=== PATIENT | male | born 1945 | race Caucasian/White ===

== ENCOUNTER → 2017-06-05 | Outpatient (CLI) | payer MEDICARE ==
--- NOTE | 2017-06-05 13:42 | US ---
EXAMINATION TYPE: US kidneys/renal and bladder DATE OF EXAM: 06/05/2017 COMPARISON: NONE CLINICAL HISTORY: R32 unspecified urinary incontinence. EXAM MEASUREMENTS: Right Kidney: 9.6 x 4.4 x 4.6 cm Left Kidney: 10.1 x 5.3 x 4.1 cm Post Void Residual Volume: 72 mL Right Kidney: No hydronephrosis or masses seen Left Kidney: No hydronephrosis or masses seen Bladder: wnl Bilateral Jets seen: Yes Normal Post Void Residual: No There is no evidence for hydronephrosis at this point in time. No nephrolithiasis is seen. No kevin s are identified. The urinary bladder is anechoic. Bilateral ureteral jets are seen. IMPRESSION: No acute process.
== END | disposition home or self-care (01) ==
LOC: RADUSWWP 12:50
PROVIDERS: ATTEND Family Medicine
DX: R32 Unspecified urinary incontinence (principal)
CPT/HCPCS: 76770

== ENCOUNTER 2018-09-26 18:57 | Emergency (ER) | payer MEDICARE ==
[2018-09-26 19:12] VITALS: RESP 18
[2018-09-26] MEDS ORDERED: cefTRIAXone 1,000 MG VIAL (IM USE) IM STA (19:20)
--- NOTE | 2018-09-26 19:21 | ED ---
Skin/Abscess/FB HPI - General Chief complaint: Skin/Abscess/Foreign Body Stated complaint: Hand swelling Time Seen by Provider: 09/26/18 19:13 Source: patient Mode of arrival: ambulatory Limitations: no limitations - History of Present Illness Initial comments: 73-year-old male presenting for possible infection of the left hand. Patient states that he hit his dorsum of the left hand a week prior. He states that he developed a small bump and he try to drain it with a needle. He states that there is a small amount of drainage but nothing impressive. She states that there is some surrounding redness seems concerns infected. Patient denies fever chills night sweats. Patient denies any limitations in range of motion of the digits or swelling of the fingers. Patient denies any pain with passive range of motion he states there is pain with palpation of the area. Remaining review systems negative patient denies history of diabetes. - Related Data Home Medications Medication Instructions Recorded Confirmed ALPRAZolam [Xanax] 0.5 mg PO HS 12/03/13 12/04/13 Allopurinol [Zyloprim] 300 mg PO DAILY 12/03/13 12/04/13 Aspirin 81 mg PO DAILY 12/03/13 12/04/13 Metoprolol Tartrate [Lopressor] 50 mg PO DAILY 12/03/13 12/04/13 Metoprolol Tartrate [Lopressor] 100 mg PO QAM 12/03/13 12/04/13 hydrALAZINE HCL [Apresoline] 50 mg PO BID 12/03/13 12/04/13 Previous Rx's Medication Instructions Recorded Cephalexin [Keflex] 500 mg PO Q6HR 7 Days #28 cap 09/26/18 Allergies Allergy/AdvReac Type Severity Reaction Status Date / Time iodine Allergy Severe face and Verified 09/26/18 19:11 throat swelling, red skin Review of Systems ROS Statement: Those systems with pertinent positive or pertinent negative responses have been documented in the HPI. ROS Other: All systems not noted in ROS Statement are negative. Past Medical History Past Medical History: GERD/Reflux, Hypertension Additional Past Medical History / Comment(s): hx bradycardia, hx ulcer, gout, arthritis History of Any Multi-Drug Resistant Organisms: None Reported Past Surgical History: Back Surgery, Heart Catheterization, Joint Replacement, Pacemaker Additional Past Surgical History / Comment(s): rt knee replacement x 2, neck surgery, retinal repair Past Anesthesia/Blood Transfusion Reactions: Previous Problems w/ Anesthesia Additional Past Anesthesia/Blood Transfusion Reaction / Comment(s): BP "crashed and kidney failure" after one knee surgery Type of Cardiac Device: Permanent Pacemaker Device Placement Date:: 7-8 yrs ago Past Psychological History: Depression Smoking Status: Never smoker Past Alcohol Use History: Daily Past Drug Use History: None Reported - Past Family History Mother Family Medical History: Cancer General Exam - General Exam Comments Initial Comments: General: The patient is awake and alert, in no distress, and does not appear acutely ill. Eye: Pupils are equal, round and reactive to light, extra-ocular movements are intact. No nystagmus. There is normal conjunctiva bilaterally. No signs of icterus. Cardiovascular: There is a regular rate and rhythm. No murmur, rub or gallop is appreciated. Respiratory: Lungs are clear to auscultation, respirations are non-labored, breath sounds are equal. No wheezes, stridor, rales, or rhonchi. Musculoskeletal: Normal ROM, no tenderness. Strength 5/5. Sensation intact. Pulses equal bilaterally 2+. Neurological: A&O x 3. CN II-XII intact, There are no obvious motor or sensory deficits. Coordination appears grossly intact. Speech is normal. Skin: Skin is warm and dry and no rashes. An abrasion of the 4th MCP joint, surrounding redness. no abscess noted. no drainge. no fusiform swelling of digits full ROM at MCP, DIP AND PIP joint of all 5 digits of affected hand. no pain with passive movement Psychiatric: Cooperative, appropriate mood & affect, normal judgment. Limitations: no limitations Course Vital Signs 09/26/18 09/26/18 19:09 20:35 Temperature 99.2 F 98.8 F Pulse Rate 70 82 Respiratory 18 18 Rate Blood Pressure 134/81 143/78 O2 Sat by Pulse 97 98 Oximetry Medical Decision Making - Medical Decision Making 73-year-old male presenting for possible infection. Upon examination there is an abrasion with surrounding redness concerning for developing infection. Patient x-ray to ensure no develop of osteomyelitis. There is no fluctuant abscess. Patient is given 1 dose of ceftriaxone. No Knavel signs. Patient show no signs of systemic infection. No history of DM. I discussed the case bedtime provider Dr. Yates feel patient is stable for discharge with oral antibiotics and outpatient primary care follow-up. Return parameters were discussed at length patient verbalizes understanding the patient is discharged appearing well Disposition Clinical Impression: Cellulitis Disposition: HOME SELF-CARE Condition: Good Instructions (If sedation given, give patient instructions): Cellulitis (ED) Additional Instructions: Please use medication as discussed. Please follow-up with family doctor in the next 2 days. Please return to emergency room if the symptoms increase or worsen or for any other concerns. Prescriptions: Cephalexin [Keflex] 500 mg PO Q6HR 7 Days #28 cap Is patient prescribed a controlled substance at d/c from ED?: No Referrals: Flaquita Hancock MD [Primary Care Provider] - 1-2 days Time of Disposition: 19:56
--- NOTE | 2018-09-26 19:44 | XR ---
EXAMINATION TYPE: XR hand complete LT DATE OF EXAM: 09/26/2018 COMPARISON: NONE HISTORY: Left hand wound. Infection. TECHNIQUE: 3 views FINDINGS: There is moderate narrowing of the first carpometacarpal joint space with sclerosis and spu r formation. There is calcification of the triangular cartilage. Metacarpals are intact. There is sof t tissue swelling on the dorsum of the MP joints. I see no fracture. Carpal bones are intact. There i s mild spurring at the DIP joints. There is some narrowing and spurring at the second MP joint. IMPRESSION: Osteoarthritis. No fracture. No sign of osteomyelitis.
[2018-09-26 20:37] VITALS: BP 143/78; PULSE 82; TEMP 98.8
== END 2018-09-26 20:37 | disposition home or self-care (01) ==
LOC: EC 18:57
DX: L03.114 Cellulitis of left upper limb (principal); S60.512A Abrasion of left hand, initial encounter; I10 Essential (primary) hypertension; M10.9 Gout, unspecified; M19.90 Unspecified osteoarthritis, unspecified site; F32.9 Major depressive disorder, single episode, unspecified; Z95.818 Presence of other cardiac implants and grafts; Z96.651 Presence of right artificial knee joint; Z95.0 Presence of cardiac pacemaker; Z79.82 Long term (current) use of aspirin; Z79.899 Other long term (current) drug therapy; Z91.048 Other nonmedicinal substance allergy status; W22.8XXA Striking against or struck by other objects, initial encounter
CPT/HCPCS: 73130; 99283; 96372; J0696

== ENCOUNTER 2018-10-22 08:53 | Day surgery (SDC) | payer MEDICARE ==
[2018-10-21 09:32] VITALS: BMI 26.9
[~2018-10-22 08:53] MED LIST: LACTATED RINGERS 1,000 ML IV SCH; LIDOCAINE 1% 20 ML VIAL (10MG/ML) FOR IV START INTRADERMA PRN
[2018-10-22 09:26] VITALS: RESP 16; TEMP 97.8
[2018-10-22] MEDS ORDERED: LIDOCAINE 1% INJ 10MG/ML (20 ML MDV) ONE (09:43)
[2018-10-22] MEDS ORDERED: PROPOFOL 10 MG/ML 20 ML VIAL IV ONE (09:43)
--- NOTE | 2018-10-22 09:59 | P.PCN ---
Date of Procedure: 10/22/18 Procedure(s) Performed: BRIEF HISTORY: Patient is a 73-year-old pleasant white male scheduled for an elective colonoscopy as a part of evaluation of intermittent rectal bleeding for the last few weeks duration. PROCEDURE PERFORMED: Colonoscopy. PREOPERATIVE DIAGNOSIS: Intermittent rectal bleeding. IV sedation per Anesthesia. PROCEDURE: After informed consent was obtained, the patient, was brought into the endoscopy unit. IV sedation was administered by Anesthesia under continuous monitoring. Digital rectal examination was normal. Initially the Olympus CF-160 flexible video colonoscope was then inserted in the rectum, gradually advanced into the cecum without any difficulty. Careful examination was performed as the scope was gradually being withdrawn. Ileocecal valve and the appendiceal orifice were visualized and appeared normal. Prep was excellent. Mucosa of the cecum, ascending colon, transverse colon, descending colon, sigmoid colon, and rectum appeared normal. Scattered sigmoid diverticulosis seen. Retroflexion was performed in the rectum and all internal hemorrhoids were seen. The patient tolerated the procedure well. IMPRESSION: Small internal hemorrhoids Scattered sigmoid diverticulosis No evidence of colorectal neoplasia RECOMMENDATIONS: Findings of this examination were discussed with the patient as his family. He will continue with a high-fiber diet and avoid constipation. He was advised to have a repeat screening colonoscopy in 10 years.
[2018-10-22 10:25] VITALS: BP 117/71; PULSE 61
== END 2018-10-22 10:50 | disposition home or self-care (01) ==
LOC: ORWHC2ENDO 08:53
PROVIDERS: ATTEND Internal Medicine Gastroenterology
DX: K57.30 Diverticulosis of large intestine without perforation or abscess without bleeding (principal); K64.8 Other hemorrhoids; K21.9 Gastro-esophageal reflux disease without esophagitis; I10 Essential (primary) hypertension; M10.9 Gout, unspecified; Z79.82 Long term (current) use of aspirin; Z79.899 Other long term (current) drug therapy; Z91.048 Other nonmedicinal substance allergy status
CPT/HCPCS: 45378; J2001; J2704

== ENCOUNTER → 2018-10-31 | Outpatient (CLI) | payer MEDICARE ==
--- NOTE | 2018-11-01 11:29 | CT ---
EXAMINATION TYPE: CT ChestAbdPelvis wo con DATE OF EXAM: 10/31/2018 COMPARISON: HISTORY: abnormal weight loss, fatigue CT DLP: 735.7mGycm Unenhanced CT of the Chest, Abdomen and Pelvis Unenhanced CT of the chest ,abdomen and pelvis is performed. The lack of intravenous contrast limits evaluation of the solid and hollow viscera. Oral contrast: Yes CT Chest: LUNGS: Hyperinflation compatible with COPD. The lungs are clear and free of infiltrate or atelectasis . No pulmonary nodule or mass is detected. No pleural effusion or CT evidence of interstitial lung disease. MEDIASTINUM: Thoracic aorta is of normal caliber. The heart is not enlarged. No evidence for media stinal mass or adenopathy. HILAR STRUCTURES: No evidence for mass. No hilar adenopathy is appreciated. OTHER: No significant abnormality. CONTRAST CT ABDOMEN AND PELVIS: LIVER/GB: No calcified gallstones. No space occupying hepatic lesion. Biliary tree is of normal ca liber. PANCREAS: No inflammation. No distinct mass. SPLEEN: Splenomegaly measuring 16.4 cm. ADRENALS: No nodule. No thickening. KIDNEYS/BLADDER: No hydronephrosis. No nephrolithiasis. No disctinct renal mass. BOWEL: Normal appendix. Normal bowel caliber. No inflammation. Moderate diverticulosis without dive rticulitis. GENITAL ORGANS: State gland enlargement with Central glandular calcification. LYMPH NODES: No greater than 1cm abdominal or pelvic lymph nodes are appreciated. AORTA: No significant abnormality. OSSEOUS STRUCTURES: Postoperative changes lumbar spine. Severe scattered degenerative disc disease. OTHER: No significant additional abnormality is seen. IMPRESSION: 1. No significant abnormality appreciated to account for the patient's symptoms. 2. Sigmoid diverticulosis without diverticulitis. 3. Splenomegaly of uncertain etiology. Multiple small subcentimeter mesenteric lymph nodes.
== END | disposition home or self-care (01) ==
LOC: RADCTMAIN 11:58
PROVIDERS: ATTEND Internal Medicine Rheumatology
DX: R16.1 Splenomegaly, not elsewhere classified (principal); K57.30 Diverticulosis of large intestine without perforation or abscess without bleeding; R22.2 Localized swelling, mass and lump, trunk; R63.4 Abnormal weight loss
CPT/HCPCS: 71250; 74176

== ENCOUNTER → 2020-10-04 | Outpatient (CLI) | payer MEDICARE ==
--- NOTE | 2020-10-04 10:56 | XR ---
EXAMINATION TYPE: XR Hip Complete LT DATE OF EXAM: 10/04/2020 COMPARISON: NONE HISTORY: Pain TECHNIQUE: 2 views submitted FINDINGS: A moderate superior narrowing of the joint space with hypertrophic spurring. Acetabular hypertrophy. No acute fracture or dislocation. Vascular calcifications noted. IMPRESSION: 1. Arthropathy correlate for femoral acetabular impingement.
--- NOTE | 2020-10-04 10:57 | XR ---
EXAM TYPE: LUMBAR SPINE X RAY SERIES COMPARISON: NONE HISTORY: Pain TECHNIQUE: 4 views are submitted. FINDINGS: Alignment is anatomic. The pedicles are intact. The transverse processes are intact. There is post surgical change L5-S1 with mild anterolisthesis. Facet arthropathy at all levels with mild to moderat e multilevel degenerative disc disease and diffuse osteopenia. Vascular calcifications noted. IMPRESSION: 1. Multilevel mild to moderate degenerative disc disease. 2. Postsurgical change at L5-S1 with grade 1 anterolisthesis. Suspect multilevel foraminal encroachme nt.
== END | disposition home or self-care (01) ==
LOC: RADXRMAIN 10:24
PROVIDERS: ATTEND Family Medicine
DX: M12.852 Other specific arthropathies, not elsewhere classified, left hip (principal); M51.36 Other intervertebral disc degeneration, lumbar region
CPT/HCPCS: 72110; 73502

== ENCOUNTER 2021-08-18 14:16 | Inpatient (IN) | payer MEDICARE ==
[2021-08-18 14:36] LABS: Glucose,Whole Blood 108 mg/dL (70-110)
[2021-08-18] MEDS ORDERED: SODIUM CHLORIDE 0.9% 500 ML 500 ML IV STA (14:43)
--- NOTE | 2021-08-18 15:08 | ED ---
General Adult HPI - General Chief complaint: Neuro Symptoms/Deficit Stated complaint: Memory Loss/Weakness/Sent by PCP Time Seen by Provider: 08/18/21 14:40 Source: patient, RN notes reviewed, old records reviewed Mode of arrival: ambulatory Limitations: no limitations - History of Present Illness Initial comments: This is a 76-year-old male who presents emergency Department complaining that he lost memory for the last 2 hours. states he was acting normal and all of a sudden he had forgotten what transpired over the last 2 hours. Patient states she can remember this morning everything that happened then. states he had no slurred speech he had no facial droop. No weakness or numbness that he was complaining of. Patient currently cannot remember those 2 hours but he is aware of the fact that he had forgotten it for. Of time. Symptoms started at 1:15 they resolved just after he arrived in the emergency department. Patient denies any recent fever chills or cough. Patient denies any injury or trauma. Patient denies any chest pain difficulty breathing shortness of breath. Patient denies any abdominal pain patient's nausea vomiting diarrhea. - Related Data Home Medications Medication Instructions Recorded Confirmed ALPRAZolam [Xanax] 0.5 mg PO HS 12/03/13 10/21/18 Aspirin 81 mg PO DAILY 12/03/13 10/21/18 Metoprolol Tartrate [Lopressor] 150 mg PO BID 12/03/13 10/21/18 allopurinoL [Zyloprim] 300 mg PO DAILY 12/03/13 10/21/18 hydrALAZINE HCL [Apresoline] 50 mg PO BID 12/03/13 10/21/18 Famotidine [Pepcid] 20 mg PO DAILY 10/21/18 10/22/18 Tamsulosin HCl [Flomax] 0.4 mg PO DAILY 10/21/18 10/22/18 Allergies Allergy/AdvReac Type Severity Reaction Status Date / Time iodine Allergy Severe face and Verified 08/18/21 14:20 throat swelling, red skin Review of Systems ROS Statement: Those systems with pertinent positive or pertinent negative responses have been documented in the HPI. ROS Other: All systems not noted in ROS Statement are negative. Past Medical History Past Medical History: GERD/Reflux, Hypertension, Prostate Disorder Additional Past Medical History / Comment(s): hx bradycardia, hx ulcer, gout, arthritis History of Any Multi-Drug Resistant Organisms: None Reported Past Surgical History: Back Surgery, Heart Catheterization, Joint Replacement, Pacemaker Additional Past Surgical History / Comment(s): rt knee replacement x 2, neck surgery, retinal repair Past Anesthesia/Blood Transfusion Reactions: Previous Problems w/ Anesthesia Additional Past Anesthesia/Blood Transfusion Reaction / Comment(s): BP "crashed and kidney failure" after one knee surgery Type of Cardiac Device: Permanent Pacemaker Device Placement Date:: 7-8 yrs ago Past Psychological History: Depression Past Alcohol Use History: Daily Past Drug Use History: None Reported - Past Family History Mother Family Medical History: Cancer General Exam - General Exam Comments Initial Comments: GENERAL: Patient is well-developed and well-nourished. Patient is nontoxic and well- hydrated and is in no acute distress. ENT: Neck is soft and supple. No significant lymphadenopathy is noted. Oropharynx is clear. Moist mucous membranes. Neck has full range of motion without eliciting any pain. EYES: The sclera were anicteric and conjunctiva were pink and moist. Extraocular movements were intact and pupils were equal round and reactive to light. Eyelids were unremarkable. PULMONARY: Unlabored respirations. Good breath sounds bilaterally. No audible rales rhonchi or wheezing was noted. CARDIOVASCULAR: There is a regular rate and rhythm without any murmurs gallops or rubs. ABDOMEN: Soft and nontender with normal bowel sounds. SKIN: Skin is clear with no lesions or rashes and otherwise unremarkable. NEUROLOGIC: Patient is alert and oriented x3. Cranial nerves II through XII are grossly intact. Motor and sensory are also intact. Normal speech, volume and content. Symmetrical smile. Patient's NIH is 0 MUSCULOSKELETAL: Normal extremities with adequate strength and full range of motion. No lower extremity swelling or edema. No calf tenderness. LYMPHATICS: No significant lymphadenopathy is noted PSYCHIATRIC: Normal psychiatric evaluation. Limitations: no limitations Course Vital Signs 08/18/21 08/18/21 14:20 15:30 Temperature 97.8 F Pulse Rate 70 61 Respiratory 16 16 Rate Blood Pressure 165/96 163/102 O2 Sat by Pulse 99 97 Oximetry Medical Decision Making - Medical Decision Making EKG shows a paced rhythm at 71 bpm CA interval is 338 QRS is 104 QT interval is 411 QTC is 434. Patient's EKG shows no ST segment elevation or depression. CT shows some hyperdense areas that could be acute versus subacute infarct. No obvious bleed was noted. Chest x-ray shows no acute abnormality. I spoke with Dr. Stratton and he agreed to admit the patient admitted the patient wrote admitting orders I consulted neurology - Lab Data Result diagrams: 08/18/21 14:54 08/18/21 14:54 Lab Results 08/18/21 08/18/21 08/18/21 Range/Units 14:35 14:54 14:54 WBC 6.1 (3.8-10.6) k/uL RBC 5.07 (4.30-5.90) m/uL Hgb 15.5 (13.0-17.5) gm/dL Hct 45.3 (39.0-53.0) % MCV 89.5 (80.0-100.0) fL MCH 30.5 (25.0-35.0) pg MCHC 34.1 (31.0-37.0) g/dL RDW 13.0 (11.5-15.5) % Plt Count 146 L (150-450) k/uL MPV 7.3 Neutrophils % 76 % Lymphocytes % 11 % Monocytes % 9 % Eosinophils % 3 % Basophils % 1 % Neutrophils # 4.6 (1.3-7.7) k/uL Lymphocytes # 0.7 L (1.0-4.8) k/uL Monocytes # 0.5 (0-1.0) k/uL Eosinophils # 0.2 (0-0.7) k/uL Basophils # 0.0 (0-0.2) k/uL PT 10.8 (9.0-12.0) sec INR 1.0 (<1.2) APTT 24.3 (22.0-30.0) sec Sodium (137-145) mmol/L Potassium (3.5-5.1) mmol/L Chloride (98-107) mmol/L Carbon Dioxide (22-30) mmol/L Anion Gap mmol/L BUN (9-20) mg/dL Creatinine (0.66-1.25) mg/dL Est GFR (CKD-EPI)AfAm (>60 ml/min/1.73 sqM) Est GFR (CKD-EPI)NonAf (>60 ml/min/1.73 sqM) Glucose (74-99) mg/dL POC Glucose (mg/dL) 108 (70-110) mg/dL POC Glu Media Relations Manager ID Kathie Haji Calcium (8.4-10.2) mg/dL Total Bilirubin (0.2-1.3) mg/dL AST (17-59) U/L ALT (4-49) U/L Alkaline Phosphatase (38-126) U/L Troponin I (0.000-0.034) ng/mL Total Protein (6.3-8.2) g/dL Albumin (3.5-5.0) g/dL 08/18/21 08/18/21 Range/Units 14:54 14:54 WBC (3.8-10.6) k/uL RBC (4.30-5.90) m/uL Hgb (13.0-17.5) gm/dL Hct (39.0-53.0) % MCV (80.0-100.0) fL MCH (25.0-35.0) pg MCHC (31.0-37.0) g/dL RDW (11.5-15.5) % Plt Count (150-450) k/uL MPV Neutrophils % % Lymphocytes % % Monocytes % % Eosinophils % % Basophils % % Neutrophils # (1.3-7.7) k/uL Lymphocytes # (1.0-4.8) k/uL Monocytes # (0-1.0) k/uL Eosinophils # (0-0.7) k/uL Basophils # (0-0.2) k/uL PT (9.0-12.0) sec INR (<1.2) APTT (22.0-30.0) sec Sodium 137 (137-145) mmol/L Potassium 4.3 (3.5-5.1) mmol/L Chloride 107 (98-107) mmol/L Carbon Dioxide 23 (22-30) mmol/L Anion Gap 7 mmol/L BUN 23 H (9-20) mg/dL Creatinine 1.13 (0.66-1.25) mg/dL Est GFR (CKD-EPI)AfAm 73 (>60 ml/min/1.73 sqM) Est GFR (CKD-EPI)NonAf 63 (>60 ml/min/1.73 sqM) Glucose 107 H (74-99) mg/dL POC Glucose (mg/dL) (70-110) mg/dL POC Glu Media Relations Manager ID Calcium 9.0 (8.4-10.2) mg/dL Total Bilirubin 1.3 (0.2-1.3) mg/dL AST 29 (17-59) U/L ALT 20 (4-49) U/L Alkaline Phosphatase 74 (38-126) U/L Troponin I <0.012 (0.000-0.034) ng/mL Total Protein 7.0 (6.3-8.2) g/dL Albumin 4.3 (3.5-5.0) g/dL Disposition Clinical Impression: Transient cerebral ischemia Disposition: ADMITTED IP TO THIS HOSP Referrals: Flaquita Hancock MD [Primary Care Provider] - 1-2 days Time of Disposition: 15:51
--- NOTE | 2021-08-18 15:12 | CT ---
EXAMINATION TYPE: CT brain wo con DATE OF EXAM: 08/18/2021 COMPARISON: 04/16/2012 HISTORY: memory loss, possible CVA CT DLP: 1123.4 mGycm Automated exposure control for dose reduction was used. FINDINGS: The ventricles, basal cisterns and sulci over convexities are within normal limits and there is no ma ss effect or shift of the midline structures. There are 2 small focal areas of decreased density one in the deep periventricular white matter adjac ent to the frontal horn of the left lateral ventricle and the other in the region of the left caudate nucleus. These are not seen on the prior study and could represent small acute to subacute infarct. There is no acute bleed or mass effect. There is no shift of midline structures Posterior fossa is grossly normal. Intraorbital contents appear normal and symmetric. Visualized paranasal sinuses and mastoid air cells are well aerated. The calvarium is intact. IMPRESSION: 1. NO ACUTE BLEED OR MASS EFFECT. 2. COMPARED TO THE PREVIOUS STUDY FROM 04/16/2012, THERE IS BEEN INTERVAL DEVELOPMENT OF SMALL HYPODENS ITIES IN THE DEEP PERIVENTRICULAR WHITE MATTER ADJACENT TO THE ANTERIOR HORN OF THE LEFT FRONTAL LOBE AND IN THE LEFT CAUDATE NUCLEUS. THESE COULD REPRESENT ACUTE OR SUBACUTE SMALL LACUNAR INFARCTS AND MR WITH DIFFUSION IS RECOMMENDED FOR FURTHER EVALUATION.
[2021-08-18 15:17] LABS: Basophils % (A) 1 %; Eosinophils # (A) 0.2 k/uL (0-0.7); Eosinophils % (A) 3 %; HCT 45.3 % (39.0-53.0); HGB 15.5 gm/dL (13.0-17.5); Lymphocytes # (A) 0.7 k/uL (1.0-4.8); Lymphocytes % (A) 11 %; MCH 30.5 pg (25.0-35.0); MCHC 34.1 g/dL (31.0-37.0); MCV 89.5 fL (80.0-100.0); Mean Platelet Volume 7.3; Monocytes # (A) 0.5 k/uL (0-1.0); Monocytes % (A) 9 %; Neutrophils # (A) 4.6 k/uL (1.3-7.7); Neutrophils % (A) 76 %; Platelet Count 146 k/uL (150-450); RBC 5.07 m/uL (4.30-5.90); WBC 6.1 k/uL (3.8-10.6)
[2021-08-18 15:26] LABS: Albumin 4.3 g/dL (3.5-5.0); Potassium 4.3 mmol/L (3.5-5.1); Total Bilirubin 1.3 mg/dL (0.2-1.3)
--- NOTE | 2021-08-18 15:30 | XR ---
EXAMINATION TYPE: XR chest 2V DATE OF EXAM: 08/18/2021 COMPARISON: CT October 31, 2018 HISTORY: Altered mental status and weakness. TECHNIQUE: Frontal and lateral views of the chest are obtained. FINDINGS: There is no suspicious new focal air space opacity, pleural effusion, or pneumothorax seen . Persistent cardiomegaly with multi lead pacemaker and ectatic thoracic aorta. Slight underlying sco liotic curvature is redemonstrated. IMPRESSION: Cardiomegaly without acute pulmonary process.
[2021-08-18 15:35] LABS: Partial Thromboplastin Time 24.3 sec (22.0-30.0); Prothrombin Time 10.8 sec (9.0-12.0)
[2021-08-18] MEDS ORDERED: ASPIRIN 325 MG TAB PO STA (15:51)
--- NOTE | 2021-08-18 20:29 | US ---
EXAMINATION TYPE: US carotid duplex BILAT DATE OF EXAM: 08/18/2021 COMPARISON: NONE CLINICAL HISTORY: TIA. memory loss EXAM MEASUREMENTS: RIGHT: Peak Systolic Velocity (PSV) cm/sec ----- Right CCA: 65.3 ----- Right ICA: 69.9 ----- Right ECA: 97.6 ICA/CCA ratio: 1.0 RIGHT: End Diastole cm/sec ----- Right CCA: 16.4 ----- Right ICA: 21.1 ----- Right ECA: 14.4 LEFT: Peak Systolic Velocity (PSV) cm/sec ----- Left CCA: 80.3 ----- Left ICA: 82.2 ----- Left ECA: 103 ICA/CCA ratio: 1.0 LEFT: End Diastole cm/sec ----- Left CCA: 19.7 ----- Left ICA: 16.1 ----- Left ECA: 10.6 VERTEBRALS (direction of flow): Right Vertebral: Antegrade Left Vertebral: Antegrade Rhythm: Normal Mild heterogeneous plaque bilaterally with no significant stenosis IMPRESSION: There is antegrade flow in the vertebral arteries. Images and measurements suggest less than 20% sten osis in both internal carotid arteries. Criteria for Assigning % of Stenosis / Diameter reduction (Estimation based on the indirect measurements of the internal carotid artery velocities (ICA PSV). 1. Normal (no stenosis)=ICA PSV < 125 cm/s: ratio < 2.0: ICA EDV<40 cm/s. 2. Less than 50% stenosis=ICA PSV < 125 cm/s: ratio < 2.0: ICA EDV<40 cm/s. 3. 50 to 69% stenosis=ICA PSV of 125 to 230 cm/s: ration 2.0 ? 4.0: ICA EDV 40-100 cm/s. 4. Greater than 70% stenosis to near occlusion= ICA PSV > 230 cm/s: ratio > 4.0: ICA EDV > 100 cm/s. 5. Near occlusion= ICA PSV velocities may be low or undetectable: variable ratio and ICA EDV. 6. Total occlusion=unable to detect flow.
[2021-08-19] MEDS ORDERED: ASPIRIN 325 MG TAB PO SCH (09:00)
--- NOTE | 2021-08-19 09:12 | CA ---
Transthoracic Echo Report Name: Rigoberto Jansen Age: 76 Gender: M : 1945 Exam Date: 08/19/2021 07:32 Exam Location: [facility] Ht (in): 71 Wt (lb): 200 Ordering Physician: Wallace Stratton MD Attending/Referring Phys: Operator Weapon Locating Radar Yvette Wallace RDCS Procedure CPT: Indications: tia Cardiac Hx: Pacemaker Technical Quality: Good Contrast 1: Total Dose (mL): Contrast 2: Total Dose (mL): MEASUREMENTS (Male / Female) Normal Values 2D ECHO LV Diastolic Diameter PLAX 3.8 cm 4.2 - 5.9 / 3.9 - 5.3 cm LV Systolic Diameter PLAX 1.4 cm IVS Diastolic Thickness 1.1 cm 0.6 - 1.0 / 0.6 - 0.9 cm LVPW Diastolic Thickness 1.4 cm 0.6 - 1.0 / 0.6 - 0.9 cm LV Relative Wall Thickness 0.7 M-MODE Aortic Root Diameter MM 4.2 cm LA Systolic Diameter MM 3.9 cm LA Ao Ratio MM 0.9 MV E Point Septal Separation 0.6 cm AV Cusp Separation MM 2.3 cm DOPPLER AV Peak Velocity 120.7 cm/s AV Peak Gradient 5.8 mmHg MV Area PHT 4.8 cm??? MR Peak Velocity 201.5 cm/s MR Peak Gradient 16.2 mmHg Mitral E Point Velocity 86.0 cm/s Mitral A Point Velocity 106.9 cm/s Mitral E to A Ratio 0.8 MV Deceleration Time 157.9 ms MV E' Velocity 6.3 cm/s Mitral E to MV E' Ratio 13.7 TR Peak Velocity 152.2 cm/s TR Peak Gradient 9.3 mmHg Right Ventricular Systolic Press 13.5 mmHg FINDINGS Left Ventricle Mildly increased septal wall thickness. Left ventricular ejection fraction is estimated at 55-60 %. Left ventricular cavity size normal. Right Ventricle The right ventricle is normal in size and function. Right Atrium The right atrium is normal in size. Left Atrium The left atrium is normal in size. Mitral Valve Structurally normal mitral valve without significant stenosis or prolapse. There is trace mitral regurgitation. Aortic Valve Structurally normal aortic valve without significant sclerosis or stenosis. There is no aortic regurgitation. Tricuspid Valve Structurally normal tricuspid valve without significant stenosis. Pulmonary artery systolic pressure is normal. Trace tricuspid regurgitation. Pulmonic Valve Structurally normal pulmonic valve without significant stenosis. There is no pulmonic regurgitation. Pericardium Normal pericardium without effusion. Aorta Mild aortic dilatation at the level of the sinuses of valsalva (root) measuring 4.2 cm. CONCLUSIONS Normal left ventricular ejection fraction 55-60% Trace mitral regurgitation Trace tricuspid regurgitation Mild aortic root dilation 4.2 cm Previewed by: Dr. Gregg Sepulveda DO (Electronically Signed) Final Date: 19 August 2021 09:11
--- NOTE | 2021-08-19 09:16 | P.CNNES ---
History of Present Illness Consult date: 08/19/21 Requesting physician: Reyes Flores Reason for Consult: TIA History of Present Illness: This is a 76-year-old gentleman with medical history of hypertension, bradycardia status post pacemaker,history of atrial fibrillation who presented to the emergency department because of amnesia. Patient stated that the he could not remember what transpired for 2 hours yesterday and it happened around 1ish pm. Prior to the episode he remembers he is dealing with this water hearing issue. He remembers coming to the hospital but he will he does not remember how he got to this floor and he does not remember that he had imaging. It seems his amnesia was more than 2 hours in total. According the ED note, his felt the patient did not have any slurred speech, facial droop, no focal weakness. Patient denies of any head trauma. Patient denies of any headache. He denies of any similar episodes like this in the past. He denies of any known stroke that he knows of. He denies any history of seizures. Patient is on home medication of aspirin 81 mg daily. Patient is not on any anticoagulation. These follow-up with cardiology team as an outpatient. Patient was tearful and he stated that he needs to go home and help his deal with this water issue. Some other workup in our facility consisted of: CT of the head is reported as no acute bleed or mass effect. Compared to the previous study from 2012 there is been interval development of small hypodensity in the deep periventricular white matter adjacent to the anterior horn of the left frontal lobe and the left caudate nucleus. These could represent acute or subacute small lacunar infarct and MRI diffusion is recommended for further evaluation. I personally reviewed that a CT of the head and I do not appreciate any acute ischemic stroke. These lacunar infarct that the reading radiologist reported and he's compared to 2013 it's hard to say th kyle are subacute or acute especially that that the last prior comparison was 2012 and I feel like these see more chronic but again we don't have any comparison since 2012. From my and there is no previous images in our facility for me to compare not even 2012. Carotid duplex is reported as there is antegrade flow in the vertebral arteries. Images and measurements suggest less than 20% stenosis in both internal carotid arteries. EKG is reported as electronic atrial pacemaker. Abnormal rhythm EKG. Review of Systems Review of system: The 12 point system was reviewed and apparent positive and negative per HPI. Past Medical History Past Medical History: GERD/Reflux, Hypertension, Prostate Disorder Additional Past Medical History / Comment(s): hx bradycardia, hx ulcer, gout, arthritis History of Any Multi-Drug Resistant Organisms: None Reported Past Surgical History: Back Surgery, Heart Catheterization, Joint Replacement, Pacemaker Additional Past Surgical History / Comment(s): rt knee replacement x 2, neck surgery, retinal repair Past Anesthesia/Blood Transfusion Reactions: Previous Problems w/ Anesthesia Additional Past Anesthesia/Blood Transfusion Reaction / Comment(s): BP "crashed and kidney failure" after one knee surgery Type of Cardiac Device: Permanent Pacemaker Device Placement Date:: 7-8 yrs ago Past Psychological History: Depression Smoking Status: Never smoker Past Alcohol Use History: Daily Past Drug Use History: None Reported - Past Family History Mother Family Medical History: Cancer Medications and Allergies Home Medications Medication Instructions Recorded Confirmed Type ALPRAZolam [Xanax] 0.5 mg PO HS 08/18/21 08/18/21 History Aspirin EC [Ecotrin Low Dose] 81 mg PO DAILY 08/18/21 08/18/21 History Doxazosin [Cardura] 4 mg PO DAILY 08/18/21 08/18/21 History Hydroxychloroquine Sulfate 200 mg PO DIRECTED 08/18/21 08/18/21 History [Plaquenil] Metoprolol Tartrate [Lopressor] 150 mg PO BID 08/18/21 08/18/21 History amLODIPine [Norvasc] 5 mg PO DAILY 08/18/21 08/18/21 History Allergies Allergy/AdvReac Type Severity Reaction Status Date / Time iodine Allergy Severe Anaphylaxis Verified 08/18/21 16:36 Physical Examination - Vital Signs Vital Signs: Vital Signs Temp Pulse Pulse Resp BP BP Pulse Ox 08/19/21 08:13 95 08/19/21 07:18 98.5 F 61 16 157/85 95 08/19/21 01:50 98.4 F 60 19 184/103 96 08/18/21 19:00 98.6 F 65 16 137/88 96 08/18/21 16:58 98.2 F 62 20 154/82 98 08/18/21 16:41 62 16 126/87 98 08/18/21 15:30 61 16 163/102 97 08/18/21 14:20 97.8 F 70 16 165/96 99 Intake and Output 08/18/21 08/19/21 08/19/21 22:59 06:59 14:59 Other: # Voids 1 2 Weight 90.718 kg GENERAL: The patient is lying in bed and is not in acute distress. CHEST: The heart rate is regular rate rhythm. No murmurs to auscultation. No carotid bruit bilaterally. LUNG: Clear to auscultation bilaterally no wheezing noted throughout. Not labored breathing. ABDOMEN/GI: Bowel sounds present in all 4 quadrants. No tenderness to palpation throughout. NEUROLOGICAL: Higher mental function: The patient is awake, alert, oriented to self, place and time. Patient is following simple commands. Subtle slight decrease response. No aphasia and no neglect. Cranial nerves: The pupils are round, equal and reactive to light and accommodation. Visual salazar are full to confrontation throughout. Extraocular movement is intact no nystagmus is noted. Facial sensation is normal to touch throughout. The facial strength is normal throughout. Hearing is normal bilaterally to hand rub. Tongue is midline and moved [id number] without any difficulty. No dysarthria is noted. Shoulder shrug is normal bilaterally. Motor: Gait is normal with normal arm swings. The strength is 5 over 5 throughout. Normal tone and bulk. Cerebellum: Normal finger to nose heel to gonzales bilaterally. Sensation: Sensation is normal to touch throughout. Reflexes (right/left): 2+ throughout. Except lowers are 1+ (had bilateral knee replacement) Plantars are mute bilaterally. Results - Laboratory Findings CBC and BMP: 08/18/21 14:54 08/18/21 14:54 Abnormal Lab Findings: Abnormal Labs 08/18/21 08/18/21 14:54 14:54 Plt Count 146 L Lymphocytes # 0.7 L BUN 23 H Glucose 107 H Assessment and Plan Assessment: Acute transient global amnesia (episode lasted more than 2 hours since it seems 2 hours prior to hospital and does not recall some of things while being here). Unknown cause. Lacunar infarct seen on a CAT scan and I think these are more chronic but it's hard to ascertain subacute since the last image for comparison was 2012. Lacunar infarcts are due to microvascular disease due to the patient risk factor (HTN, age) History of atrial fibrillation not on anticoagulation Hypertension Bradycardia status post pacemaker Plan: We cannot obtain MRI of the brain since patient has a pacemaker and recommended MRI the brain as an outpatient that his pacemaker compatible In the ED the patient was given aspirin 325mg once and his home medication was increased by the ED team from 81 mg to 325. I'll decrease it to 81 and in addition I'll add Plavix 75mg daily. Patient to be on dual antiplatelets for 21 days and after that he can be on only Plavix. I started the patient on Lipitor 20 mg daily at bedtime for secondary stroke prophylaxis I ordered TSH, hemoglobin A1c, vitamin B12, folate 2-D echo, lipid panel is ordered and is pending Recommend a routine EEG to rule out any seizure Will not be done until this Saturday since there is no division order technician available PT, OT and LAWNM[employer] MECH[employer]IC are consulted Cardiology team is consulted for history of atrial fibrillation We'll defer the rest of the medical management to primary team For DVT prophylaxis: started on subq heparin 5000U every 12 hours. Recommend the patient to follow-up with a neurologist as an outpatient within 1- 2 weeks Patient is refusing to stay here longer and wants to be discharged home. He was notified that we needed additional work-up prior to discharge. The plan is discussed with patient and his nurse. Thank you for the consultation. Carlos Dimas M.D. Neuro-hospitalist Time with Patient: Greater than 30
[2021-08-19 09:34] LABS: Chol/HDL Ratio 2.71 Ratio; LDL Cholesterol,Calculated 73.3 mg/dL (0.0-131.0); VLDL Calculation 18.84 mg/dL (5.00-40.00)
--- NOTE | 2021-08-19 10:44 | P.CRDCN ---
History of Present Illness History of present illness: HISTORY OF PRESENTING ILLNESS Patient is a pleasant 76-year-old male with history of hypertension, sick sinus syndrome status post prior pacemaker with prior lead revision, recently diagnose d lupus, TIA symptoms. He used to reduce the follow with Dr. Collier. He had an episode yesterday where he was confused and cannot recall where he was or what he was doing which is abnormal for him and therefore brought him to the emergency department. His symptoms improved by the time he got to emergency department. He has not had similar episodes in the past. Apparently overnight he had some similar episodes however may been some ing. He does have some issues with recall and question of some progression of mild dementia. He denies any chest pain or pressure, tightness. There is some report of atrial fibrillation however patient and both deny. CT brain showed no significant acute findings however some change of small vessel changes. EKG shows atrial paced rhythm with intrinsic ventricular sensing, normal axis, no significant ST or T wave abnormalities. On telemetry patient has been atrial paced without any significant atrial fibrillation or arrhythmias noted. He did have prior history of needing a lead revision. REVIEW OF SYSTEMS At the time of my exam: CONSTITUTIONAL: Denies fever or chills. CARDIOVASCULAR: Denies chest pain, shortness of breath, orthopnea, PND or palpitations. RESPIRATORY: Denies cough. GASTROINTESTINAL: Denies abdominal pain, diarrhea, constipation, nausea or vomiting. MUSCULOSKELETAL: Denies myalgias. NEUROLOGIC: Denies numbness, tingling or weakness. ENDOCRINE: Denies fatigue, weight change, polydipsia or polyurina. GENITOURINARY: Denies burning, hematuria or urgency with micturation. HEMATOLOGIC: Denies history of anemia or bleeding. PHYSICAL EXAMINATION Vital signs reviewed. CONSTITUTIONAL: No apparent distress. HEENT: Head is normocephalic. Pupils are equal, round. Sclerae anicteric. Mucous membranes of the mouth are moist. No JVD. No carotid bruit. CHEST EXAMINATION: Lungs are clear to auscultation. No chest wall tenderness is noted on palpation or with deep breathing. HEART EXAMINATION: Regular rate and rhythm. S1, S2 heard. No murmurs, gallops or rub. ABDOMEN: Soft, nontender. Positive bowel sounds. EXTREMITIES: 2+ peripheral pulses, no lower extremity edema and no calf tenderness. NEUROLOGIC EXAMINATION: Patient is awake, alert and oriented x3. ASSESSMENT 1. Altered mental status concerning for TIA. Recurrent symptoms may be related to sundowning on the hospital 2. Sick sinus syndrome status post permanent pacemaker 3. Hypertension 4. Hyperlipidemia 5. Documentation of atrial fibrillation however patient denies, currently atrial paced PLAN Echocardiogram reviewed with normal left ventricular function without significant valvular disease. Patient has been doing well from a cardiac standpoint. We'll interrogate pacemaker to determine if any significant atrial fibrillation burden. If patient does have significant A. fib burden would recommend anticoagulation however if pacemaker shows nothing, it does not appear he actually has atrial fibrillation. Cleared for discharge pending interrogation. Past Medical History Past Medical History: GERD/Reflux, Hypertension, Prostate Disorder Additional Past Medical History / Comment(s): hx bradycardia, hx ulcer, gout, arthritis History of Any Multi-Drug Resistant Organisms: None Reported Past Surgical History: Back Surgery, Heart Catheterization, Joint Replacement, Pacemaker Additional Past Surgical History / Comment(s): rt knee replacement x 2, neck surgery, retinal repair Past Anesthesia/Blood Transfusion Reactions: Previous Problems w/ Anesthesia Additional Past Anesthesia/Blood Transfusion Reaction / Comment(s): BP "crashed and kidney failure" after one knee surgery Type of Cardiac Device: Permanent Pacemaker Device Placement Date:: 7-8 yrs ago Past Psychological History: Depression Smoking Status: Never smoker Past Alcohol Use History: Daily Past Drug Use History: None Reported - Past Family History Mother Family Medical History: Cancer Medications and Allergies Home Medications Medication Instructions Recorded Confirmed Type ALPRAZolam [Xanax] 0.5 mg PO HS 08/18/21 08/18/21 History Aspirin EC [Ecotrin Low Dose] 81 mg PO DAILY 08/18/21 08/18/21 History Doxazosin [Cardura] 4 mg PO DAILY 08/18/21 08/18/21 History Hydroxychloroquine Sulfate 200 mg PO DIRECTED 08/18/21 08/18/21 History [Plaquenil] Metoprolol Tartrate [Lopressor] 150 mg PO BID 08/18/21 08/18/21 History amLODIPine [Norvasc] 5 mg PO DAILY 08/18/21 08/18/21 History Allergies Allergy/AdvReac Type Severity Reaction Status Date / Time iodine Allergy Severe Anaphylaxis Verified 08/18/21 16:36 Physical Exam Vitals: Vital Signs Temp Pulse Pulse Resp BP BP Pulse Ox 08/19/21 08:13 95 08/19/21 07:18 98.5 F 61 16 157/85 95 08/19/21 01:50 98.4 F 60 19 184/103 96 08/18/21 19:00 98.6 F 65 16 137/88 96 08/18/21 16:58 98.2 F 62 20 154/82 98 08/18/21 16:41 62 16 126/87 98 08/18/21 15:30 61 16 163/102 97 08/18/21 14:20 97.8 F 70 16 165/96 99 Intake and Output 08/18/21 08/19/21 08/19/21 22:59 06:59 14:59 Other: # Voids 1 2 Weight 90.718 kg Results 08/18/21 14:54 08/18/21 14:54 Cardiac Enzymes 08/18/21 08/18/21 Range/Units 14:54 14:54 AST 29 (17-59) U/L Troponin I <0.012 (0.000-0.034) ng/mL Coagulation 08/18/21 Range/Units 14:54 PT 10.8 (9.0-12.0) sec APTT 24.3 (22.0-30.0) sec Lipids 08/18/21 Range/Units 14:54 Triglycerides 94.20 (0.00-149.00) mg/dL Cholesterol 146.00 (0.00-200.00) mg/dL HDL Cholesterol 53.90 (40.00-60.00) mg/dL Cholesterol/HDL Ratio 2.71 Ratio CBC 08/18/21 Range/Units 14:54 WBC 6.1 (3.8-10.6) k/uL RBC 5.07 (4.30-5.90) m/uL Hgb 15.5 (13.0-17.5) gm/dL Hct 45.3 (39.0-53.0) % Plt Count 146 L (150-450) k/uL Comprehensive Metabolic Panel 08/18/21 Range/Units 14:54 Sodium 137 (137-145) mmol/L Potassium 4.3 (3.5-5.1) mmol/L Chloride 107 (98-107) mmol/L Carbon Dioxide 23 (22-30) mmol/L BUN 23 H (9-20) mg/dL Creatinine 1.13 (0.66-1.25) mg/dL Glucose 107 H (74-99) mg/dL Calcium 9.0 (8.4-10.2) mg/dL AST 29 (17-59) U/L ALT 20 (4-49) U/L Alkaline Phosphatase 74 (38-126) U/L Total Protein 7.0 (6.3-8.2) g/dL Albumin 4.3 (3.5-5.0) g/dL Current Medications Generic Name Dose Route Start Last Admin Trade Name Freq PRN Reason Stop Dose Admin Aspirin 81 mg 08/20/21 09:00 Aspirin 81 Mg PO DAILY [facility] Atorvastatin Calcium 20 mg 08/19/21 21:00 Atorvastatin 20 Mg Tab PO HS [facility] Clopidogrel Bisulfate 75 mg 08/19/21 09:15 Clopidogrel 75 Mg Tab PO DAILY [facility] Heparin Sodium (Porcine) 5,000 unit 08/19/21 21:00 Heparin Sodium,Porcine/Pf 5,000 Unit/0.5 Ml Syringe SQ Q12HR [facility] Intake and Output 08/18/21 08/19/21 08/19/21 22:59 06:59 14:59 Other: # Voids 1 2 Weight 90.718 kg 08/18/21 14:54 08/18/21 14:54
[2021-08-19] MEDS: CLOPIDOGREL 75 MG TAB PO SCH (11:13)
--- NOTE | 2021-08-19 12:22 | P.HPIM ---
History of Present Illness H&P Date: 08/18/21 Rigoberto Jansen, he is a 76-year-old male who presented to [facility] emergency room with a chief complaint of episode of loss of memory. Patient and his are in the room, his state that her went to the store and bought some items and came back, when he was at home he was not able to remember that he went to the store or bought anything, he was confused, he could not remember the location of the furness, he was brought in to emergency room and he gradually started to remember. He was evaluated in the emergency room vital examination on presentation revealed a temperature of 97.8 pulse 70 respirations 16 blood pressure 165/96 pulse ox 99% on room air Laboratory data revealed a white blood count of 6.1 hemoglobin 15.5 platelet count 146 sodium 137 potassium 4.3 chloride 107 CO2 23 BUN 23 creatinine 1.13 Testing in the emergency room revealed EKG done in the emergency room revealed electronic atrial pacemaker, computed tomography scan of the brain revealed no acute bleeding or mass effect, there is a small hypodensities in the deep periventricular white matter adjacent to the anterior horn of the left frontal lobe and the left caudate nucleus that could be acute or subacute small lacunar infarcts. Patient was admitted to medical floor for further evaluation and treatment, echocardiogram and carotid Doppler were ordered, neurology consultation re quested. On review of patient's chart there is a diagnosis of atrial fibrillation since 2013, patient denies any knowledge of having atrial fibrillation, cardiology consult will be requested to assess if there is any need for anticoagulation. Past Medical History Past Medical History: GERD/Reflux, Hypertension, Prostate Disorder Additional Past Medical History / Comment(s): hx bradycardia, hx ulcer, gout, arthritis History of Any Multi-Drug Resistant Organisms: None Reported Past Surgical History: Back Surgery, Heart Catheterization, Joint Replacement, Pacemaker Additional Past Surgical History / Comment(s): rt knee replacement x 2, neck surgery, retinal repair Past Anesthesia/Blood Transfusion Reactions: Previous Problems w/ Anesthesia Additional Past Anesthesia/Blood Transfusion Reaction / Comment(s): BP "crashed and kidney failure" after one knee surgery Type of Cardiac Device: Permanent Pacemaker Device Placement Date:: 7-8 yrs ago Past Psychological History: Depression Past Alcohol Use History: Daily Past Drug Use History: None Reported - Past Family History Mother Family Medical History: Cancer Medications and Allergies Home Medications Medication Instructions Recorded Confirmed Type ALPRAZolam [Xanax] 0.5 mg PO HS 08/18/21 08/18/21 History Aspirin EC [Ecotrin Low Dose] 81 mg PO DAILY 08/18/21 08/18/21 History Doxazosin [Cardura] 4 mg PO DAILY 08/18/21 08/18/21 History Hydroxychloroquine Sulfate 200 mg PO DIRECTED 08/18/21 08/18/21 History [Plaquenil] Metoprolol Tartrate [Lopressor] 150 mg PO BID 08/18/21 08/18/21 History amLODIPine [Norvasc] 5 mg PO DAILY 08/18/21 08/18/21 History Allergies Allergy/AdvReac Type Severity Reaction Status Date / Time iodine Allergy Severe Anaphylaxis Verified 08/18/21 16:36 Physical Exam Vitals: Vital Signs Temp Pulse Resp BP Pulse Ox 08/18/21 15:30 61 16 163/102 97 08/18/21 14:20 97.8 F 70 16 165/96 99 Intake and Output 08/18/21 08/18/21 08/18/21 06:59 14:59 22:59 Other: Weight 90.718 kg In general patient is alert and oriented x 3 in no distress HEENT head normocephalic and atraumatic Neck is supple no JVD no goiter no lymphadenopathy no carotid bruit Chest examination is clear to auscultation no crackles no wheezing Cardiac exam reveals regular heart sounds S1 and S2 no gallops no murmurs Abdomen is soft nontender no organomegaly with normal bowel sounds Extremity exam reveals no edema no cyanosis or clubbing Neurological examination reveals no gross focal deficits Results CBC & Chem 7: 08/18/21 14:54 08/18/21 14:54 Labs: Abnormal Lab Results - Last 24 Hours (Table) 08/18/21 08/18/21 Range/Units 14:54 14:54 Plt Count 146 L (150-450) k/uL Lymphocytes # 0.7 L (1.0-4.8) k/uL BUN 23 H (9-20) mg/dL Glucose 107 H (74-99) mg/dL Assessment and Plan Plan: Episode of loss of memory, lasting about 2 hours, likely representing a TIA, patient is admitted to telemetry floor, echocardiogram and carotid Doppler were ordered, neurology consultation and cardiology consultation were requested Underlying history of hypertension Underlying history of anxiety disorder maintained on Xanax Previous history of pacemaker placement Possible underlying history of atrial fibrillation cardiology consultation requested At this time patient is admitted to telemetry floor Awaiting cardiology and neurology input Echocardiogram and carotid Doppler ordered awaiting results Will follow closely
--- NOTE | 2021-08-19 12:24 | P.PN ---
Subjective Progress Note Date: 08/19/21 Rigoberto Jansen, he is a 76-year-old male who presented to [facility] emergency room with a chief complaint of episode of loss of memory. Patient and his are in the room, his state that her went to the store and bought some items and came back, when he was at home he was not able to remember that he went to the store or bought anything, he was confused, he could not remember the location of the furness, he was brought in to emergency room and he gradually started to remember. He was evaluated in the emergency room vital examination on presentation revealed a temperature of 97.8 pulse 70 respirations 16 blood pressure 165/96 pulse ox 99% on room air Laboratory data revealed a white blood count of 6.1 hemoglobin 15.5 platelet count 146 sodium 137 potassium 4.3 chloride 107 CO2 23 BUN 23 creatinine 1.13 Testing in the emergency room revealed EKG done in the emergency room revealed electronic atrial pacemaker, computed tomography scan of the brain revealed no acute bleeding or mass effect, there is a small hypodensities in the deep periventricular white matter adjacent to the anterior horn of the left frontal lobe and the left caudate nucleus that could be acute or subacute small lacunar infarcts. Patient was admitted to medical floor for further evaluation and treatment, echocardiogram and carotid Doppler were ordered, neurology consultation destiny myrick. On review of patient's chart there is a diagnosis of atrial fibrillation since 2013, patient denies any knowledge of having atrial fibrillation, cardiology consult will be requested to assess if there is any need for anticoagulation. On 08/19/2021 patient was seen and examined on the telemetry floor he is alert and oriented 3 in no apparent distress he denies any new episodes of loss of memory, there is no fever or chills no headache or dizziness no chest pain no shortness of breath no cough no nausea or vomiting no abdominal pain no diarrhea no blood in the stools no burning with urination no frequency or urgency and no hematuria, echocardiogram done, results reviewed, carotid Doppler done, no evidence of any significant stenosis, Plavix was added to medication regimen by neurology, cardiology ordering investigation of pacemaker to assess whether patient has atrial fibrillation, in that case he would need anticoagulation. Objective - Vital Signs Vital signs: Vital Signs Temp 98.5 F 08/19/21 07:18 Pulse 61 08/19/21 07:18 Resp 16 08/19/21 07:18 BP 157/85 08/19/21 07:18 Pulse Ox 95 08/19/21 08:13 FiO2 Intake & Output 08/18/21 08/19/21 08/19/21 18:59 06:59 18:59 Weight 90.718 kg Other: # Voids 2 - Exam In general patient is alert and oriented x 3 in no distress HEENT head normocephalic and atraumatic Neck is supple no JVD no goiter no lymphadenopathy no carotid bruit Chest examination is clear to auscultation no crackles no wheezing Cardiac exam reveals regular heart sounds S1 and S2 no gallops no murmurs Abdomen is soft nontender no organomegaly with normal bowel sounds Extremity exam reveals no edema no cyanosis or clubbing Neurological examination reveals no gross focal deficits - Labs CBC & Chem 7: 08/18/21 14:54 08/18/21 14:54 Labs: Abnormal Lab Results - Last 24 Hours (Table) 08/18/21 08/18/21 Range/Units 14:54 14:54 Plt Count 146 L (150-450) k/uL Lymphocytes # 0.7 L (1.0-4.8) k/uL BUN 23 H (9-20) mg/dL Glucose 107 H (74-99) mg/dL Assessment and Plan Plan: Episode of loss of memory, lasting about 2 hours, likely representing a TIA, patient is admitted to telemetry floor, echocardiogram and carotid Doppler were ordered, neurology consultation and cardiology consultation were requested Underlying history of hypertension Underlying history of anxiety disorder maintained on Xanax Previous history of pacemaker placement Possible underlying history of atrial fibrillation cardiology consultation requested At this time patient is admitted to telemetry floor Awaiting cardiology and neurology input Echocardiogram and carotid Doppler ordered awaiting results Will follow closely
[2021-08-19] MEDS: HEPARIN SODIUM,PORCINE/PF 5,000 UNIT/0.5 ML SYRINGE SQ SCH (21:17)
[2021-08-19] MEDS: ATORVASTATIN 20 MG TAB PO SCH (21:17)
[2021-08-20] MEDS ORDERED: QUEtiapine 25 MG TAB PO ONE (03:00)
[2021-08-20] MEDS: CLOPIDOGREL 75 MG TAB PO SCH (09:32)
[2021-08-20] MEDS: ASPIRIN 81 MG PO SCH (09:32)
[2021-08-20] MEDS: HEPARIN SODIUM,PORCINE/PF 5,000 UNIT/0.5 ML SYRINGE SQ SCH ×2 (09:32→21:37)
--- NOTE | 2021-08-20 10:58 | CT ---
EXAMINATION TYPE: CT brain wo con DATE OF EXAM: 08/20/2021 HISTORY: AMS CT DLP: 1029.9 mGycm. Automated Exposure Control for Dose Reduction was Utilized. TECHNIQUE: CT scan of the head is performed without contrast. COMPARISON: CT brain 2 days earlier. FINDINGS: There is no acute intracranial hemorrhage or midline shift identified. There is mild diff use ventricular and sulcal prominence consistent with diffuse age-related cerebral atrophy. There is mild to moderate low-attenuation in the periventricular white matter consistent with chronic small v essel ischemic change. The globes are intact and the visualized sinuses are clear. IMPRESSION: No acute intracranial hemorrhage or midline shift. There is mild diffuse age-related ce rebral atrophy and [id number] chronic small vessel ischemic change redemonstrated. No signific ant change from prior.
--- NOTE | 2021-08-20 12:56 | P.PN ---
Subjective Progress Note Date: 08/20/21 Rigoberto Jansen, he is a 76-year-old male who presented to [facility] emergency room with a chief complaint of episode of loss of memory. Patient and his are in the room, his state that her went to the store and bought some items and came back, when he was at home he was not able to remember that he went to the store or bought anything, he was confused, he could not remember the location of the furness, he was brought in to emergency room and he gradually started to remember. He was evaluated in the emergency room vital examination on presentation revealed a temperature of 97.8 pulse 70 respirations 16 blood pressure 165/96 pulse ox 99% on room air Laboratory data revealed a white blood count of 6.1 hemoglobin 15.5 platelet count 146 sodium 137 potassium 4.3 chloride 107 CO2 23 BUN 23 creatinine 1.13 Testing in the emergency room revealed EKG done in the emergency room revealed electronic atrial pacemaker, computed tomography scan of the brain revealed no acute bleeding or mass effect, there is a small hypodensities in the deep periventricular white matter adjacent to the anterior horn of the left frontal lobe and the left caudate nucleus that could be acute or subacute small lacunar infarcts. Patient was admitted to medical floor for further evaluation and treatment, echocardiogram and carotid Doppler were ordered, neurology consultation destiny myrick. On review of patient's chart there is a diagnosis of atrial fibrillation since 2013, patient denies any knowledge of having atrial fibrillation, cardiology consult will be requested to assess if there is any need for anticoagulation. On 08/19/2021 patient was seen and examined on the telemetry floor he is alert and oriented 3 in no apparent distress he denies any new episodes of loss of memory, there is no fever or chills no headache or dizziness no chest pain no shortness of breath no cough no nausea or vomiting no abdominal pain no diarrhea no blood in the stools no burning with urination no frequency or urgency and no hematuria, echocardiogram done, results reviewed, carotid Doppler done, no evidence of any significant stenosis, Plavix was added to medication regimen by neurology, cardiology ordering investigation of pacemaker to assess whether patient has atrial fibrillation, in that case he would need anticoagulation. On 08/20/2021 patient was seen and examined on the telemetry floor he is alert, in no apparent distress, he has been confused and slightly agitated through the night, today he states he does not remember being in the hospital, he is having episodes of crying, there is no fever or chills no headache or dizziness no chest pain no shortness of breath no cough no nausea or vomiting no abdominal pain no diarrhea no blood in the stools no burning with urination no frequency or urgency and no hematuria. Objective - Vital Signs Vital signs: Vital Signs Temp 99.0 F 08/20/21 07:30 Pulse 87 08/20/21 07:30 Resp 18 08/20/21 07:30 BP 129/81 08/20/21 07:30 Pulse Ox 93 L 08/20/21 07:30 FiO2 Intake & Output 08/19/21 08/20/21 08/20/21 18:59 06:59 18:59 Intake Total 358 118 Balance 358 118 Intake: Oral 358 118 Other: # Voids 3 1 # Bowel Movements 1 - Exam In general patient is alert and oriented x 3 in no distress HEENT head normocephalic and atraumatic Neck is supple no JVD no goiter no lymphadenopathy no carotid bruit Chest examination is clear to auscultation no crackles no wheezing Cardiac exam reveals regular heart sounds S1 and S2 no gallops no murmurs Abdomen is soft nontender no organomegaly with normal bowel sounds Extremity exam reveals no edema no cyanosis or clubbing Neurological examination reveals no gross focal deficits - Labs CBC & Chem 7: 08/18/21 14:54 08/18/21 14:54 Assessment and Plan Plan: Episode of loss of memory, lasting about 2 hours, likely representing a TIA, adry clements is admitted to telemetry floor, echocardiogram and carotid Doppler were ordered, neurology consultation and cardiology consultation were requested Underlying history of hypertension Underlying history of anxiety disorder maintained on Xanax Previous history of pacemaker placement, awaiting pacemaker interrogation to assess whether patient is having atrial fibrillation Possible underlying history of atrial fibrillation cardiology consultation requested Episodes of confusion slight agitation and crying, will add psychiatry consultation At this time patient is admitted to telemetry floor Awaiting cardiology and neurology input Echocardiogram and carotid Doppler ordered awaiting results Will follow closely
[2021-08-20] MEDS ORDERED: NON FORMULARY DRUG (Aspirin Ec 81 MG Tablet) PO SCH (13:00)
[2021-08-20] MEDS: METOPROLOL TARTRATE 50 MG TAB PO SCH ×2 (13:50→21:36)
[2021-08-20] MEDS: amLODIPine 5 MG TAB PO SCH (13:50)
[2021-08-20] MEDS: DOXAZOSIN 4 MG TAB PO SCH (13:50)
[2021-08-20] MEDS: HYDROXYCHLOROQUINE SULFATE 200 MG TAB PO SCH (13:51)
--- NOTE | 2021-08-20 14:05 | P.PN ---
Subjective Progress Note Date: 08/20/21 The patient is seen at bedside and was tearful stating he does not know why he is still here. He asked me if I evaluated him yesterday. Objective - Vital Signs Vital signs: Vital Signs Temp 99.0 F 08/20/21 07:30 Pulse 87 08/20/21 07:30 Resp 18 08/20/21 07:30 BP 129/81 08/20/21 07:30 Pulse Ox 93 L 08/20/21 07:30 FiO2 Intake & Output 08/19/21 08/20/21 08/20/21 18:59 06:59 18:59 Intake Total 358 236 Balance 358 236 Intake: Oral 358 236 Other: # Voids 3 1 # Bowel Movements 1 - Exam GENERAL: The patient is sitting in a recliner chair and was tearful. PSYCH: Is tearful. NEUROLOGICAL: Higher mental function: The patient is awake, alert, oriented to self, place and time. Patient is following simple commands. Subtle slight decrease response. No aphasia and no neglect. Cranial nerves: The pupils are round, equal and reactive to light. Visual salazar are full to confrontation throughout. Extraocular movement is intact no nystagmus is noted. Facial sensation is normal to touch throughout. The facial strength is normal throughout. Hearing is normal bilaterally to hand rub. Tongue is midline and moved [id number] without any difficulty. No dysarthria is noted. Shoulder shrug is normal bilaterally. Motor: The strength is 5 over 5 throughout. Normal tone and bulk. Cerebellum: Normal finger to nose heel to gonzales bilaterally. Sensation: Sensation is normal to touch throughout. Some other workup in our facility consisted of: Lipid Panel: Triglyceride is 94, cholesterol is 146, LDL 73 and HDL 63 Hemoglobin A1c is 5.1 CT of the head is reported as no acute bleed or mass effect. Compared to the previous study from 2012 there is been interval development of small hypodensity in the deep periventricular white matter adjacent to the anterior horn of the left frontal lobe and the left caudate nucleus. These could represent acute or subacute small lacunar infarct and MRI diffusion is recommended for further evaluation. I personally reviewed that a CT of the head and I do not appreciate any acute ischemic stroke. These lacunar infarct that the reading radiologist reported and he's compared to 2013 it's hard to say these are subacute or acute especially that that the last prior comparison was 2012 and I feel like these see more chronic but again we don't have any rustam rison since 2013. From my and there is no previous images in our facility for me to compare not even 2013. Carotid duplex is reported as there is antegrade flow in the vertebral arteries. Images and measurements suggest less than 20% stenosis in both internal carotid arteries. EKG is reported as electronic atrial pacemaker. Abnormal rhythm EKG. 2-D echo was reported as normal left ventricular ejection fraction with ejection fraction 55-60%. Trace mitral regurgitation. Trace tricuspid regurgitation. Mitral aortic root dilation 4.2 cm. Left atrium is normal size. - Labs CBC & Chem 7: 08/18/21 14:54 08/18/21 14:54 Assessment and Plan Assessment: Acute transient global amnesia (episode lasted more than 2 hours since it seems 2 hours prior to hospital and does not recall some of things while being here). Unknown cause. 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 Lacunar infarcts are due to microvascular disease due to the patient risk factor (HTN, age) History of atrial fibrillation not on anticoagulation Hypertension Bradycardia status post pacemaker Plan: We cannot obtain MRI of the brain since patient has a pacemaker and recommended MRI the brain as an outpatient that his pacemaker compatible Repeat CT head today: It is reported as no acute intracranial hemorrhage or midline shift. There is mild diffuse age-related cerebral atrophy and mild to moderate chronic small vessel ischemic changes redemonstrated. No significant change from prior. I personally reviewed the CT of the head and I agree with the report. Continue ASA 81 mg daily (home) and Plavix 75mg daily. Patient to be on dual antiplatelets for 21 days and after that he can be on only Plavix. I started the patient on Lipitor 20 mg daily at bedtime for secondary stroke prophylaxis Pending Vitamin B12, folate Pending routine EEG to rule out any seizure Will not be done until this Saturday since there is no technical expert available PT, OT and CAR[employer] FLOOR LAYER APPRENTICE are consulted Cardiology team is consulted for history of atrial fibrillation We'll defer the rest of the medical management to primary team For DVT prophylaxis: On subq heparin 5000U every 12 hours. Recommend the patient to follow-up with a neurologist as an outpatient within 1- 2 weeks The plan is discussed with patient and his nurse. Dr. Martin will start neurology service tomorrow AM. Carlos Dimas M.D. Neuro-hospitalist Time with Patient: Less than 30
--- NOTE | 2021-08-20 16:33 | P.PN ---
Subjective HISTORY OF PRESENTING ILLNESS Patient is a pleasant 76-year-old male with history of hypertension, sick sinus syndrome status post prior pacemaker with prior lead revision, recently diagnosed lupus, TIA symptoms. He used to reduce the follow with Dr. Collier. He had an episode yesterday where he was confused and cannot recall where he was or what he was doing which is abnormal for him and therefore brought him to the emergency department. His symptoms improved by the time he got to emergency department. He has not had similar episodes in the past. Apparently overnight he had some similar episodes however may been some sundowni ng. He does have some issues with recall and question of some progression of mild dementia. He denies any chest pain or pressure, tightness. There is some report of atrial fibrillation however patient and both deny. CT brain showed no significant acute findings however some change of small vessel changes. EKG shows atrial paced rhythm with intrinsic ventricular sensing, normal axis, no significant ST or T wave abnormalities. On telemetry patient has been atrial paced without any significant atrial fibrillation or arrhythmias noted. He did have prior history of needing a lead revision. 08/20 Patient seen and examined. Patient had pacemaker interrogated which shows no atrial fibrillation episodes and predominantly atrial paced rhythms. States he is feeling somewhat better. Denies any chest pain or pressure. PHYSICAL EXAMINATION Vital signs reviewed. CONSTITUTIONAL: No apparent distress. HEENT: Head is normocephalic. Pupils are equal, round. Sclerae anicteric. Mucous membranes of the mouth are moist. No JVD. No carotid bruit. CHEST EXAMINATION: Lungs are clear to auscultation. No chest wall tenderness is noted on palpation or with deep breathing. HEART EXAMINATION: Regular rate and rhythm. S1, S2 heard. No murmurs, gallops or rub. ABDOMEN: Soft, nontender. Positive bowel sounds. EXTREMITIES: 2+ peripheral pulses, no lower extremity edema and no calf tenderness. NEUROLOGIC EXAMINATION: Patient is awake, alert and oriented x3. ASSESSMENT 1. Altered mental status concerning for TIA. Recurrent symptoms may be related to sundowning on the hospital 2. Sick sinus syndrome status post permanent pacemaker 3. Hypertension 4. Hyperlipidemia 5. Documentation of atrial fibrillation however patient denies and none seen on pacemaker interrogation. PLAN No atrial fibrillation noted on pacemaker interrogation. No indications for any anticoagulation at this point. Continue with antiplatelets. Further neurologic workup per neurology. No further recommendations from a cardiology standpoint. Please call with questions. Objective - Vital Signs Vital signs: Vital Signs Temp 98.9 F 08/20/21 15:19 Pulse 63 08/20/21 15:19 Resp 16 08/20/21 15:19 BP 134/78 08/20/21 15:19 Pulse Ox 97 08/20/21 15:19 FiO2 Intake & Output 08/19/21 08/20/21 08/20/21 18:59 06:59 18:59 Intake Total 358 236 Balance 358 236 Intake: Oral 358 236 Other: # Voids 3 1 2 # Bowel Movements 1 - Labs CBC & Chem 7: 08/18/21 14:54 08/18/21 14:54
[2021-08-20] MEDS ORDERED: ALPRAZolam 0.5 MG TAB PO SCH (21:00)
[2021-08-20] MEDS ORDERED: HYDROXYCHLOROQUINE SULFATE 200 MG TAB PO SCH (21:00)
[2021-08-20] MEDS ORDERED: QUEtiapine 25 MG TAB PO SCH (21:00)
[2021-08-20] MEDS: ATORVASTATIN 20 MG TAB PO SCH (21:35)
[2021-08-21] MEDS: ASPIRIN 81 MG PO SCH (08:36)
[2021-08-21] MEDS: amLODIPine 5 MG TAB PO SCH (08:36)
[2021-08-21] MEDS: DOXAZOSIN 4 MG TAB PO SCH (08:36)
[2021-08-21] MEDS: METOPROLOL TARTRATE 50 MG TAB PO SCH ×2 (08:36→19:53)
[2021-08-21] MEDS: CLOPIDOGREL 75 MG TAB PO SCH (08:36)
[2021-08-21] MEDS: HYDROXYCHLOROQUINE SULFATE 200 MG TAB PO SCH (08:40)
[2021-08-21] MEDS: HEPARIN SODIUM,PORCINE/PF 5,000 UNIT/0.5 ML SYRINGE SQ SCH ×2 (08:40→19:53)
[2021-08-21 09:19] LABS: Basophils # (A) 0.04 X 10*3/uL (0.00-0.10); Basophils % (A) 0.6 %; Eosinophils % (A) 1.5 %; HCT 43.6 % (39.6-50.0); HGB 14.5 g/dL (13.0-17.0); Immature Grans, Automated 0.4 %; Lymphocytes # (A) 1.09 X 10*3/uL (0.90-5.00); MCH 29.7 pg (27.0-32.0); MCHC 33.3 g/dL (32.0-37.0); MCV 89.2 fL (80.0-97.0); Mean Platelet Volume 10.5 fL (9.5-12.2); Monocytes # (A) 0.83 X 10*3/uL (0.20-1.00); Monocytes % (A) 12.2 %; NRBC Per 100 WBC 0 /100 WBCS (0.0-0.0); Neutrophils # (A) 4.74 X 10*3/uL (1.80-7.70); Neutrophils % (A) 69.3 %; Platelet Count 141 X 10*3/uL (140-440); RBC 4.89 X 10*6/uL (4.40-5.60); RDW 12.8 % (11.5-14.5); WBC 6.83 X 10*3/uL (4.50-10.00)
[2021-08-21 09:35] LABS: African American GFR (CKD) 67.7 (60.0-200.0); Albumin 4.2 g/dL (3.8-4.9); Albumin/Globulin Ratio 1.83 (1.60-3.17); Anion Gap 11.4 mmol/L (10.00-18.00); BUN/Creat Ratio 15.17 Ratio (12.00-20.00); Blood Urea Nitrogen 18.2 mg/dL (9.0-27.0); Calcium 8.9 mg/dL (8.7-10.3); Carbon Dioxide 24.6 mmol/L (20.0-27.5); Globulin 2.3 g/dL (1.6-3.3); Non-African American GFR(CKD) 58.4 (60.0-200.0); Total Bilirubin 0.9 mg/dL (0.30-1.20); Total Protein 6.5 g/dL (6.2-8.2)
--- NOTE | 2021-08-21 14:45 | P.CN ---
Psychiatric Consult - . Consult date: 08/21/21 Consult:: 08/21/21 14:43 IDENTIFYING DATA: This patient is a , retired, 76-year-old male who presented to the hospital for memory loss. HISTORY OF PRESENT ILLNESS: The patient presented to the hospital on 08/18/2021, brought into the hospital with a chief complaint of memory loss. The patient was sent to buy some sealant by his and returned home with it however was unable to recall ever going to the store and buying anything. Since then, the patient has been admitted and worked up for evaluation of altered mental status with testing for stroke and seizure disorder. Psychiatry has been consulted for altered mental status and crying episodes. Upon evaluation on the medical floor, present at the patient's bedside is his Ida Pike. The patient is agreeable to having her present in the room to help provide collateral information. Prior to his episode involving the ceiling, the patient's and the patient denied any significant episodes of memory loss. The patient and his deny any significant history of getting lost, leaving compliance is on, and misplacing objects in the home. 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 He also reports concern regarding his daughter's new boyfriend who is 11 years older than her. Despite ongoing levels of stress, the patient is not reporting any significant symptoms of depression. He reports no issues regarding his sleep or his appetite. He denies any feelings of hopelessness or helplessness. He does report elevated anxiety due to the memory loss as well as the ongoing stressors that he has not been able to address due to his age and energy level. The patient does report a significant history of depression and has been treated previously treated for depression approximately 20 years ago but has not seen any therapist or psychiatrist since then. The patient and his recall being previous prescribed Prozac in the distant past. He reports no prior attempts at suicide. The patient also reports no significant history of manic episodes in the past. No auditory or visual hallucinations are endorsed. No paranoia or other delusions. In regards to substance use, the patient reports a glass of wine at night. No reported substance abuse history. Denies any marijuana or illicit drug use. The patient's also denies that the patient had any recent falls or any recent head trauma. The crying episodes are new but appeared to be well controlled and occur only in the context of his frustration with being hospitalized and unable to address his ongoing stressors and feeling like he is a burden to his and others. PAST PSYCHIATRIC HISTORY: Patient has a history of depression. Patient recalls being previous prescribed Prozac in the distant past however is not prescribed any current psychotropic medications. Patient denies any previous psychiatric hospitalizations. Patient denies any psychiatric outpatient follow-up. Patient denies any history of suicide attempts in the past. PAST MEDICAL HISTORY: Past Medical History: GERD/Reflux, Hypertension, Prostate Disorder Additional Past Medical History / Comment(s): hx bradycardia, hx ulcer, gout, arthritis History of Any Multi-Drug Resistant Organisms: None Reported Past Surgical History: Back Surgery, Heart Catheterization, Joint Replacement, Pacemaker Additional Past Surgical History / Comment(s): rt knee replacement x 2, neck surgery, retinal repair Past Anesthesia/Blood Transfusion Reactions: Previous Problems w/ Anesthesia Additional Past Anesthesia/Blood Transfusion Reaction / Comment(s): BP "crashed and kidney failure" after one knee surgery Type of Cardiac Device: Permanent Pacemaker Device Placement Date:: 7-8 yrs ago Past Psychological History: Depression Past Alcohol Use History: Daily Past Drug Use History: None Reported ALLERGIES: Iodine CHEMICAL DEPENDENCY HISTORY: Patient reports a glass of wine at night. No reported drug or tobacco use. FAMILY PSYCHIATRIC/SUBSTANCE USE HISTORY: No reported family history of psychiatric illness or substance abuse. SOCIAL HISTORY: Patient was born and raised in [place]. He has been for 56 years to his Ida Pike. They have a daughter together. 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 MENTAL STATUS EXAM: General Appearance: Patient appears to be stated age is alert, pleasant, and cooperative. Patient appears to have fair hygiene and grooming wearing hospital gown with fair eye contact. Behavior: Patient is calmly seated in his chair without any agitated behavior. Speech: Patient's speech is fluent and nonpressured. Mood/Affect: Patient reports their mood is "I feel like a burden", affect is congruent and appropriately tearful Suicidality/Homicidality: Patient denies having any suicidal or homicidal ideation intent or plan. Perceptions: Patient denies any visual hallucinations and denies any auditory hallucinations Though content/process: There is no evidence of any delusional thought content and thought process is linear and goal-directed. Memory and concentration: AOX2 (states the year is 2020 and not 2021 - otherwise month is correct), grossly intact for the purposes of this session. Can spell "WORLD" backwards Judgment and insight: Fair Vital Signs Temp 98.4 F 08/21/21 07:35 Pulse 63 08/21/21 07:35 Resp 16 08/21/21 08:47 BP 133/76 08/21/21 07:35 Pulse Ox 99 08/21/21 07:35 FiO2 Intake & Output 08/20/21 08/21/21 08/21/21 18:59 06:59 18:59 Intake Total 354 Balance 354 Intake: Oral 354 Other: Voiding Method Toilet # Voids 2 1 1 Laboratory Results - Last 24 Hours 08/18/21 08/18/21 08/21/21 14:54 14:54 04:26 WBC 6.83 RBC 4.89 Hgb 14.5 Hct 43.6 MCV 89.2 MCH 29.7 MCHC 33.3 RDW 12.8 Plt Count 141 MPV 10.5 Immature Gran % (Auto) 0.4 Absolute Nucleated RBC 0 Neutrophils % 69.3 Lymphocytes % 16.0 Monocytes % 12.2 Eosinophils % 1.5 Basophils % 0.6 Immature Gran # 0.03 Neutrophils # 4.74 Lymphocytes # 1.09 Monocytes # 0.83 Eosinophils # 0.10 Basophils # 0.04 NRBC/100 WBC Diff 0 Sodium Potassium Chloride Carbon Dioxide Anion Gap BUN Creatinine Est GFR (CKD-EPI)AfAm Est GFR (CKD-EPI)NonAf BUN/Creatinine Ratio Glucose Calcium Total Bilirubin AST ALT Alkaline Phosphatase Total Protein Albumin Globulin Albumin/Globulin Ratio Vitamin B12 274.0 Folate 12.50 TSH 1.950 08/21/21 04:26 WBC RBC Hgb Hct MCV MCH MCHC RDW Plt Count MPV Immature Gran % (Auto) Absolute Nucleated RBC Neutrophils % Lymphocytes % Monocytes % Eosinophils % Basophils % Immature Gran # Neutrophils # Lymphocytes # Monocytes # Eosinophils # Basophils # NRBC/100 WBC Diff Sodium 141 Potassium 4.0 Chloride 105 Carbon Dioxide 24.6 Anion Gap 11.40 BUN 18.2 Creatinine 1.2 Est GFR (CKD-EPI)AfAm 67.7 Est GFR (CKD-EPI)NonAf 58.4 L BUN/Creatinine Ratio 15.17 Glucose 93 Calcium 8.9 Total Bilirubin 0.90 AST 19 ALT 21 Alkaline Phosphatase 64 Total Protein 6.5 Albumin 4.2 Globulin 2.3 Albumin/Globulin Ratio 1.83 Vitamin B12 Folate TSH IMPRESSIONS: Episode of memory loss - TIA versus transient global amnesia History of depression and anxiety -Patient's increased tearfulness and mood is appropriate given his acute onset of memory difficulties. However it should be noted the patient is prescribed Hydroxychloroquine which can have psychiatric adverse reactions of increase mood lability and anxiety. May recommend an alternative medication if possible with a more tolerable side effect profile. PLAN: -Continue medical management and diagnostic workup. -At this time patient DOES NOT meet criteria for inpatient psychiatric admission. The patient is not presenting with imminent risk of harm to self or others at this time. He has no prior attempts at suicide and has a strong support system. -Delirium precautions recommended with patient including - avoiding use of narcotics and CHAPERONE sedatives, limit anticholinergic medications when possible, frequent re-orientation, minimize use of restraints, open window shades during the day and close them at night -Would recommend the following medication changes/additions: Continue home medication of Xanax 0.5 mg by mouth at bedtime for anxiety We will discontinue Seroquel at this time with consideration to the patient's age and cardiac history as antipsychotics present with a black box warning of increased cardiovascular events in his age group. Recommend possible change in medication from hydroxychloroquine to be decided by the patient's primary medical team. -Recommend outpatient psychotherapy to help with ongoing life stressors. -TSH, B12, and folate were reviewed and within normal limits. -Psychiatry will sign off at this point, please contact with any questions. 08/21/21 14:44 08/21/21 14:45
--- NOTE | 2021-08-21 16:56 | P.PN ---
Subjective Progress Note Date: 08/21/21 Rigoberto Jansen, he is a 76-year-old male who presented to [facility] emergency room with a chief complaint of episode of loss of memory. Patient and his are in the room, his state that her went to the store and bought some items and came back, when he was at home he was not able to remember that he went to the store or bought anything, he was confused, he could not remember the location of the furness, he was brought in to emergency room and he gradually started to remember. He was evaluated in the emergency room vital examination on presentation revealed a temperature of 97.8 pulse 70 respirations 16 blood pressure 165/96 pulse ox 99% on room air Laboratory data revealed a white blood count of 6.1 hemoglobin 15.5 platelet count 146 sodium 137 potassium 4.3 chloride 107 CO2 23 BUN 23 creatinine 1.13 Testing in the emergency room revealed EKG done in the emergency room revealed electronic atrial pacemaker, computed tomography scan of the brain revealed no acute bleeding or mass effect, there is a small hypodensities in the deep periventricular white matter adjacent to the anterior horn of the left frontal lobe and the left caudate nucleus that could be acute or subacute small lacunar infarcts. Patient was admitted to medical floor for further evaluation and treatment, echocardiogram and carotid Doppler were ordered, neurology consultation destiny myrick. On review of patient's chart there is a diagnosis of atrial fibrillation since 2013, patient denies any knowledge of having atrial fibrillation, cardiology consult will be requested to assess if there is any need for anticoagulation. On 08/19/2021 patient was seen and examined on the telemetry floor he is alert and oriented 3 in no apparent distress he denies any new episodes of loss of memory, there is no fever or chills no headache or dizziness no chest pain no shortness of breath no cough no nausea or vomiting no abdominal pain no diarrhea no blood in the stools no burning with urination no frequency or urgency and no hematuria, echocardiogram done, results reviewed, carotid Doppler done, no evidence of any significant stenosis, Plavix was added to medication regimen by neurology, cardiology ordering investigation of pacemaker to assess whether patient has atrial fibrillation, in that case he would need anticoagulation. On 08/20/2021 patient was seen and examined on the telemetry floor he is alert, in no apparent distress, he has been confused and slightly agitated through the night, today he states he does not remember being in the hospital, he is having episodes of crying, there is no fever or chills no headache or dizziness no chest pain no shortness of breath no cough no nausea or vomiting no abdominal pain no diarrhea no blood in the stools no burning with urination no frequency or urgency and no hematuria. On 08/21/2021 patient was seen and examined on the medical floor he is alert and oriented 3 in no apparent distress he remains confused he is having episodes of forget fullness, when asked a few questions patient becomes agitated and starts crying, at this time evaluation by neurology and psychiatry ongoing, there is no fever or chills no headache or dizziness no chest pain no shortness of breath no cough no nausea or vomiting no abdominal pain no diarrhea and no urinary symptoms Objective - Vital Signs Vital signs: Vital Signs Temp 98.4 F 08/21/21 07:35 Pulse 63 08/21/21 07:35 Resp 16 08/21/21 08:47 BP 133/76 08/21/21 07:35 Pulse Ox 99 08/21/21 07:35 FiO2 Intake & Output 08/20/21 08/21/21 08/21/21 18:59 06:59 18:59 Intake Total 354 Balance 354 Intake: Oral 354 Other: Voiding Method Toilet # Voids 2 1 - Exam In general patient is alert and oriented x 3 in no distress HEENT head normocephalic and atraumatic Neck is supple no JVD no goiter no lymphadenopathy no carotid bruit Chest examination is clear to auscultation no crackles no wheezing Cardiac exam reveals regular heart sounds S1 and S2 no gallops no murmurs Abdomen is soft nontender no organomegaly with normal bowel sounds Extremity exam reveals no edema no cyanosis or clubbing Neurological examination reveals no gross focal deficits - Labs CBC & Chem 7: 08/21/21 04:26 08/21/21 04:26 Labs: Abnormal Lab Results - Last 24 Hours (Table) 08/21/21 Range/Units 04:26 Est GFR (CKD-EPI)NonAf 58.4 L (60.0-200.0) Assessment and Plan Plan: Episode of loss of memory, lasting about 2 hours, likely representing a TIA, patient is admitted to telemetry floor, echocardiogram and carotid Doppler were ordered, neurology consultation and cardiology consultation were requested Underlying history of hypertension Underlying history of anxiety disorder maintained on Xanax Previous history of pacemaker placement, awaiting pacemaker interrogation to assess whether patient is having atrial fibrillation Possible underlying history of atrial fibrillation cardiology consultation requested Episodes of confusion slight agitation and crying, will add psychiatry consultation At this time patient is admitted to telemetry floor Awaiting cardiology and neurology input Echocardiogram and carotid Doppler ordered awaiting results Will follow closely
--- NOTE | 2021-08-21 18:04 | EEG ---
ELECTROENCEPHALOGRAM REPORT DATE OF SERVICE: 08/21/2021 PREAMBLE: This is a 76-year-old male, came to the ED because of amnesia. Patient stated he could not remember what happened for 2 hours the day prior. The patient currently takes Xanax, aspirin, Norvasc, Plavix, Cardura, Seroquel, Lopressor, and Lipitor. EEG FINDINGS: A 21 channel digital EEG recorded with video component, utilizing 10/20 international system with referential and bipolar montages. Background consists of well developed, well regulated moderate voltage activity in 10 hertz alpha. Background is posterior dominant and reactive to eye opening and closing. Photic driving response was seen with some flash frequencies. Some drowsiness was seen with appearance of bilaterally symmetric theta frequency rhythm. Deeper stages of sleep were not seen. No focal or generalized epileptiform activity was seen. IMPRESSION: This is a normal awake and drowsy EEG. No focal, lateralized or epileptiform activity was seen. MMODL / IJN: [id number] /
[2021-08-21] MEDS: ATORVASTATIN 20 MG TAB PO SCH (19:53)
[2021-08-21] MEDS ORDERED: CYANOCOBALAMIN 1,000 MCG/ML 1 ML VIAL IM ONE (20:43)
[2021-08-21] MEDS ORDERED: ALPRAZolam 0.5 MG TAB PO SCH (21:00)
[2021-08-22 07:33] VITALS: RESP 17
[2021-08-22 09:37] LABS: African American GFR (CKD) 61.4 (60.0-200.0); Albumin 3.9 g/dL (3.8-4.9); Albumin/Globulin Ratio 1.77 (1.60-3.17); Anion Gap 13.5 mmol/L (10.00-18.00); BUN/Creat Ratio 15.08 Ratio (12.00-20.00); Blood Urea Nitrogen 19.6 mg/dL (9.0-27.0); Calcium 8.7 mg/dL (8.7-10.3); Carbon Dioxide 24.5 mmol/L (20.0-27.5); Globulin 2.2 g/dL (1.6-3.3); Potassium 3.8 mmol/L (3.5-5.5); Total Bilirubin 0.7 mg/dL (0.30-1.20); Total Protein 6.1 g/dL (6.2-8.2)
[2021-08-22 09:47] LABS: Basophils # (A) 0.06 X 10*3/uL (0.00-0.10); Basophils % (A) 0.9 %; Eosinophils # (A) 0.17 X 10*3/uL (0.04-0.35); Eosinophils % (A) 2.5 %; HCT 44.6 % (39.6-50.0); HGB 14.7 g/dL (13.0-17.0); Immature Grans, Automated 0.3 %; Lymphocytes % (A) 17.7 %; MCH 29.5 pg (27.0-32.0); MCV 89.6 fL (80.0-97.0); Mean Platelet Volume 10.3 fL (9.5-12.2); Monocytes # (A) 0.75 X 10*3/uL (0.20-1.00); NRBC Per 100 WBC 0 /100 WBCS (0.0-0.0); Neutrophils # (A) 4.59 X 10*3/uL (1.80-7.70); Neutrophils % (A) 67.6 %; Platelet Count 142 X 10*3/uL (140-440); RBC 4.98 X 10*6/uL (4.40-5.60); RDW 12.9 % (11.5-14.5); WBC 6.79 X 10*3/uL (4.50-10.00)
[2021-08-22] MEDS: amLODIPine 5 MG TAB PO SCH (10:17)
[2021-08-22] MEDS: HEPARIN SODIUM,PORCINE/PF 5,000 UNIT/0.5 ML SYRINGE SQ SCH (10:17)
[2021-08-22] MEDS: DOXAZOSIN 4 MG TAB PO SCH (10:17)
[2021-08-22] MEDS: ASPIRIN 81 MG PO SCH (10:17)
[2021-08-22] MEDS: CLOPIDOGREL 75 MG TAB PO SCH (10:17)
[2021-08-22] MEDS: METOPROLOL TARTRATE 50 MG TAB PO SCH (10:18)
--- NOTE | 2021-08-22 10:52 | P.PN ---
Subjective Progress Note Date: 08/21/21 Patient was seen for a follow-up. Patient initially seen by Dr. Carlos Dimas. Please refer to his note for details. Patient has presented with transient global amnesia. Patient cannot have MRI because he has a pacemaker. Patient offers no complaints. Appears comfortable, sitting in the recliner. Objective - Vital Signs Vital signs: Vital Signs Temp 98.5 F 08/21/21 19:12 Pulse 60 08/21/21 19:12 Resp 16 08/21/21 19:12 BP 129/80 08/21/21 19:12 Pulse Ox 97 08/21/21 19:12 FiO2 Intake & Output 08/21/21 08/21/21 08/22/21 06:59 18:59 06:59 Intake Total 118 Balance 118 Intake: Oral 118 Other: Voiding Method Toilet # Voids 1 1 - Exam Patient's mental status, speech and language functions are normal. Cranial nerves significant for normal visual salazar, normal pupils, extraocular muscles and facial strength. Tongue protrudes to the midline. Muscle strength is normal. No ataxia. Sensations equal. Gen. examination significant for mild peripheral edema. Patient has evidence of old bilateral knee replacements. - Labs CBC & Chem 7: 08/22/21 04:05 08/22/21 04:05 Labs: Abnormal Lab Results - Last 24 Hours (Table) 08/21/21 Range/Units 04:26 Est GFR (CKD-EPI)NonAf 58.4 L (60.0-200.0) Assessment and Plan Assessment: Probable transient global amnesia (episode lasted more than 2 hours since it seems 2 hours prior to hospital and does not recall some of things while being here). Unknown cause. Lacunar infarct seen on a CAT scan and I think these are more chronic but it's hard to ascertain subacute since the last image for comparison was 2012. Lacunar infarcts are due to microvascular disease due to the patient risk factor (HTN, age) History of atrial fibrillation not on anticoagulation Hypertension Bradycardia status post pacemaker Plan: MRI of the brain cannot be obtained since patient has a pacemaker. May consider MRI the brain as an outpatient that his pacemaker compatible Repeat CT head 08/20/2021: Reported as no acute intracranial hemorrhage or midline shift. There is mild diffuse age-related cerebral atrophy and mild to moderate chronic small vessel ischemic changes redemonstrated. No significant change from prior. I personally reviewed the CT of the head and I agree with the report. Continue ASA 81 mg daily (home) and Plavix 75mg daily added by Dr. Dimas. Patient to be on dual antiplatelets for 21 days and after that he can be on only Plavix. Continue Lipitor 20 mg daily at bedtime for secondary stroke prophylaxis Vitamin B12 274 which is low. Patient was given B12 injection 1000 g IM 1 dose daily for 2 days. Thereafter can start vitamin B12 1000 g orally daily. Folate normal 12.50. TSH 1.95. EEG was normal awake and drowsy. No focal, lateralized or epileptiform activity was seen. PT, OT and [employer]LL[employer] MACHINE [employer]ER are consulted Cardiology team is consulted for history of atrial fibrillation We'll defer the rest of the medical management to primary team For DVT prophylaxis: On subq heparin 5000U every 12 hours. Recommend the patient to follow-up with a neurologist as an outpatient within 1- 2 weeks Neurologically clear for discharge.
[2021-08-22] MEDS ORDERED: CYANOCOBALAMIN 1,000 MCG/ML 1 ML VIAL IM ONE (12:00)
[2021-08-22 14:09] VITALS: BP 139/79; PULSE 63; TEMP 98.1
== END 2021-08-22 16:30 | disposition home or self-care (01) | DRG 72 ==
LOC: EC 14:16 → 6NMEDSUR 15:52 → OBSVTOIN 08-22 16:01
PROVIDERS: ADMIT Internal Medicine; ATTEND Internal Medicine
PROC: 4B02XSZ Measurement of Cardiac Pacemaker, External Approach (ICD-10-PCS; principal; 2021-08-20)
DX: G45.4 Transient global amnesia (principal); E78.5 Hyperlipidemia, unspecified; F41.9 Anxiety disorder, unspecified; F32.A Depression, unspecified; I10 Essential (primary) hypertension; M19.90 Unspecified osteoarthritis, unspecified site; M10.9 Gout, unspecified; N42.9 Disorder of prostate, unspecified; I48.91 Unspecified atrial fibrillation; Z79.82 Long term (current) use of aspirin; Z79.899 Other long term (current) drug therapy; Z45.010 Encounter for checking and testing of cardiac pacemaker pulse generator [battery]; Z86.73 Personal history of transient ischemic attack (TIA), and cerebral infarction without residual deficits
CPT/HCPCS: 36415; 70450; 71046; 80053; 80061; 82607; 82746; 83036; 84443; 84484; 85025; 85610; 85730; 93005; 93306; 93880; 95816; 96360; 99285

== ENCOUNTER → 2021-10-25 | Outpatient (CLI) | payer MEDICARE ==
--- NOTE | 2021-10-25 15:37 | CT ---
EXAMINATION TYPE: CT brain wo/w con DATE OF EXAM: 10/25/2021 COMPARISON: 08/20/2021 INDICATION: Cerebrovascular disease, Amnesia DLP: 2289.40 mGycm, Automated exposure control for dose reduction was used. CONTRAST: 100 mL Isovue-300 CT of the brain is performed utilizing 3 mm thick sections through the posterior fossa and 3 mm thick sections through the remaining calvarium. Study is performed within 24 hours of arrival to the hosp [facility]. No abnormal hyperdensity is present to suggest an acute intracranial hemorrhage. No mass lesion is evident. No acute infarcts are evident. There is mild hypodensity in the periventricular white matter, likely on the basis of chronic white matter ischemic changes. Ventricles and sulci are mildly prominent for the patient age. Following the intravenous administration of contrast, no abnormal enhancement is evident. Paranasal sinuses and mastoid air cells within the [id number] are clear. IMPRESSIONS: 1. Atrophy with mild periventricular white matter ischemic type changes, exam is stable from compar masha.
== END | disposition home or self-care (01) ==
LOC: RADCTMAIN 13:34
PROVIDERS: ATTEND Psychiatry & Neurology Neurology
DX: I67.9 Cerebrovascular disease, unspecified (principal)
CPT/HCPCS: 70470; Q9967

== ENCOUNTER → 2021-10-25 | Outpatient (CLI) | payer MEDICARE ==
[2021-10-25 13:52] LABS: Basophils % (A) 0 %; Eosinophils % (A) 0 %; HCT 45.2 % (39.0-53.0); HGB 14.9 gm/dL (13.0-17.5); Lymphocytes # (A) 0.3 k/uL (1.0-4.8); Lymphocytes % (A) 7 %; MCH 30.1 pg (25.0-35.0); MCV 91.1 fL (80.0-100.0); Mean Platelet Volume 7.5; Monocytes # (A) 0.2 k/uL (0-1.0); Monocytes % (A) 3 %; Neutrophils # (A) 4.4 k/uL (1.3-7.7); Neutrophils % (A) 89 %; Platelet Count 123 k/uL (150-450); RBC 4.96 m/uL (4.30-5.90)
[2021-10-25 13:53] LABS: African American GFR (CKD) 65 (>60 ml/min/1.73 sqM); Anion Gap 12 mmol/L; Blood Urea Nitrogen 28 mg/dL (9-20); Calcium 9.3 mg/dL (8.4-10.2); Carbon Dioxide 26 mmol/L (22-30); Chloride 101 mmol/L (98-107); Glucose 140 mg/dL (74-99); Non-African American GFR(CKD) 57 (>60 ml/min/1.73 sqM); Potassium 4.5 mmol/L (3.5-5.1); Sodium 139 mmol/L (137-145)
== END | disposition home or self-care (01) ==
LOC: LABWHC1 13:09
PROVIDERS: ATTEND Psychiatry & Neurology Neurology
DX: R41.82 Altered mental status, unspecified (principal); I67.9 Cerebrovascular disease, unspecified
CPT/HCPCS: 36415; 80048; 85025; 87086

== ENCOUNTER → 2021-10-26 | Outpatient (CLI) | payer MEDICARE ==
--- NOTE | 2021-12-06 11:08 | P.CEMON ---
Event monitor for 10 days Sinus mechanism Intermittent ventricular pacing Nonsustained ventricular tachycardia for 9 beats Occasional supraventricular premature beats No sustained arrhythmias
== END | disposition home or self-care (01) ==
LOC: RADECHMAIN 11:50
PROVIDERS: ATTEND Psychiatry & Neurology Neurology
DX: I67.9 Cerebrovascular disease, unspecified (principal)
CPT/HCPCS: 93270

== ENCOUNTER → 2023-01-29 | Outpatient (CLI) | payer MEDICARE ==
[2023-01-29 14:07] LABS: INR 1.4 (<1.2); Partial Thromboplastin Time 26.2 sec (22.0-30.0); Prothrombin Time 14.5 sec (10.0-12.5)
[2023-01-29 18:45] LABS: MCH 30.2 pg (27.0-32.0); MCHC 33.3 g/dL (32.0-37.0); MCV 90.7 FL (80.0-97.0); Mean Platelet Volume 10.7 FL (9.5-12.2); NRBC Per 100 WBC 0 X 10*3/uL (0.00-0.01); Platelet Count 156 X 10*3/uL (140-440); RBC 4.96 X 10*6/uL (4.40-5.60); RDW 13.1 % (11.5-14.5); WBC 7.04 X 10*3/uL (4.50-10.00)
[2023-01-29 18:52] LABS: Erythrocyte Sedimentation Rate 10 mm/Hr (0-20)
[2023-01-29 18:53] LABS: BUN/Creat Ratio 20.42 Ratio (12.00-20.00); Blood Urea Nitrogen 24.5 mg/dL (9.0-27.0); C Reactive Protein <0.30 mg/dL (0.00-0.80); Glucose 89 mg/dL (70-110)
[2023-01-29 18:54] LABS: ALT 22 U/L (10-49); AST 24 U/L (14-35); Albumin 4.4 g/dL (3.8-4.9); Alkaline Phosphatase 77 U/L (41-126); Calcium 9.3 mg/dL (8.7-10.3); Carbon Dioxide 23.1 mmol/L (21.6-31.8); Chloride 104 mmol/L (96-109); Globulin 2.2 g/dL (1.6-3.3); Potassium 4.3 mmol/L (3.5-5.5); Sodium 140 mmol/L (135-145); Total Bilirubin 0.7 mg/dL (0.3-1.2); Total Protein 6.6 g/dL (6.2-8.2); Uric Acid 6.2 mg/dL (3.7-8.7)
[2023-01-29 21:47] LABS: Cyclic Citrull Pep IgG Unit <1.5 U/mL (<=3.9); Cyclic Citrullinated Pep IgG Negative
== END | disposition home or self-care (01) ==
LOC: LABWHC1 12:34
PROVIDERS: ATTEND Internal Medicine Rheumatology
DX: Z01.812 Encounter for preprocedural laboratory examination (principal); M25.50 Pain in unspecified joint; M06.4 Inflammatory polyarthropathy; Z79.01 Long term (current) use of anticoagulants
CPT/HCPCS: 36415; 80053; 84550; 85027; 85610; 85652; 85730; 86140; 86200

== ENCOUNTER 2023-09-20 20:50 | Inpatient (IN) | payer MEDICARE ==
[~2023-09-20 20:50] MED LIST changes: -LACTATED RINGERS 1,000 ML IV SCH; -LIDOCAINE 1% 20 ML VIAL (10MG/ML) FOR IV START INTRADERMA PRN; +SODIUM CHLORIDE 0.9% 1,000 ML BAG ONE
[2023-09-20] MEDS ORDERED: ATORVASTATIN 20 MG TAB ONE (21:51)
[2023-09-20] MEDS ORDERED: METOPROLOL TARTRATE 25 MG TAB ONE (21:51)
[2023-09-20] MEDS ORDERED: ASPIRIN 325 MG TAB ONE (21:52)
[2023-09-21] MEDS ORDERED: METOPROLOL TARTRATE 25 MG TAB ONE ×2 (08:25→21:32)
[2023-09-21] MEDS ORDERED: TAMSULOSIN 0.4 MG CAP.ER.24H PO ONE (08:25)
[2023-09-21] MEDS ORDERED: SERTRALINE 50 MG TAB ONE (08:26)
[2023-09-21] MEDS ORDERED: ATORVASTATIN 20 MG TAB ONE (21:32)
[2023-09-22] MEDS ORDERED: METOPROLOL TARTRATE 25 MG TAB ONE ×2 (08:08→20:49)
[2023-09-22] MEDS ORDERED: TAMSULOSIN 0.4 MG CAP.ER.24H PO ONE (08:08)
[2023-09-22] MEDS ORDERED: ASPIRIN 325 MG TAB ONE (08:09)
[2023-09-22] MEDS ORDERED: ATORVASTATIN 20 MG TAB ONE (20:50)
[2023-09-22] MEDS ORDERED: CLOPIDOGREL 75 MG TAB ONE (21:47)
[2023-09-23] MEDS ORDERED: hydrALAZINE HCL 20 MG/ML 1 ML VIAL ONE (03:03)
[2023-09-23] MEDS ORDERED: TAMSULOSIN 0.4 MG CAP.ER.24H PO ONE (08:01)
[2023-09-23] MEDS ORDERED: METOPROLOL TARTRATE 25 MG TAB ONE (08:01)
[2023-09-23] MEDS ORDERED: SERTRALINE 50 MG TAB ONE (08:01)
[2023-09-23] MEDS ORDERED: ASPIRIN 81 MG ONE (08:01)
--- NOTE | 2023-10-19 19:30 | US ---
EXAM: US Duplex Bilateral Extracranial Arteries CLINICAL HISTORY: r/o stenosis TECHNIQUE: Real-time duplex ultrasound scan of the extracranial arteries integrating B-mode two-dimensional vascular structure, Doppler spectral analysis and color flow Doppler imaging. COMPARISON: No relevant prior studies available. FINDINGS: Right common carotid artery:Unremarkable. No occlusion or significant stenosis on color flowand spectral Doppler imaging. Right internal carotid artery:Calcific plaque. Peak systolic cm/s. No occlusion or significant stenosis on color flow and spectral Doppler imaging. Right external carotid artery:Unremarkable. No occlusion or significant stenosis on color flowand spectral Doppler imaging. Right vertebral artery:Unremarkable. Antegrade flow. Right ICA/CCA ratio: 0.92. Within normal limits. Left common carotid artery:Unremarkable. No occlusion or significant stenosis on color flowand spectral Doppler imaging. Left internal carotid artery:Calcific plaque. Peak systolic [id number] cm/s. No occlusion or significant stenosis on color flow and spectral Doppler imaging. Left external carotid artery:Unremarkable. No occlusion or significant stenosis on color flowand spectral Doppler imaging. Left vertebral artery:Unremarkable. Antegrade flow. Left ICA/CCA ratio: 0.97. Within normal limits. CAROTID STENOSIS REFERENCE USING SRU CRITERIA: Mild - <50%stenosis. ICAPSV is less than 125 cm/second and plaque or intimal thickening is visible. Moderate - 50-69%stenosis. ICAPSV is 125 to 230 cm/second and plaque is visible. Severe - 70-94%stenosis. ICAPSV is more than 230 cm/second and visible plaque with lumen narrowing is seen. Near occlusion - 95-99%stenosis. ICAPSV is variable and significant plaque with luminal narrowing is seen. Occluded - 100%stenosis. No flow identified. IMPRESSION: 1. Estimated less than 50%stenosis in the bilateral ICAs by sonographic criteria. Radiologist: Ceferino Gonsalez M.D. Electronically Signed: 09/22/23 23:33 Study ready at 22:07 and initial results transmitted at 23:33 [facility]
--- NOTE | 2023-10-28 17:57 | CA ---
Transthoracic Echo Report Name: Rigoberto Jansen Age: 78 Gender: M : 1945 Exam Date: 09/23/2023 08:09 Exam Location: [place] [facility] Ht (in): 70 Wt (lb): 200 Ordering Physician: Wallace Stratton MD Attending/Referring Phys: Architectural Engineer Ida Cortez RDCS Procedure CPT: Indications: Chest Pain Cardiac Hx: Chest Pain Technical Quality: Contrast 1: Total Dose (mL): Contrast 2: Total Dose (mL): MEASUREMENTS (Male / Female) Normal Values 2D ECHO LV Diastolic Diameter PLAX 4.4 cm 4.2 - 5.9 / 3.9 - 5.3 cm LV Systolic Diameter PLAX 2.3 cm IVS Diastolic Thickness 1.2 cm 0.6 - 1.0 / 0.6 - 0.9 cm LVPW Diastolic Thickness 1.2 cm 0.6 - 1.0 / 0.6 - 0.9 cm LV Relative Wall Thickness 0.5 RV Internal Dim ED PLAX 2.6 cm Aortic Root Diameter 4.2 cm LA Systolic Diameter LX 4.8 cm 3.0 - 4.0 / 2.7 - 3.8 cm LV Diastolic Volume MOD BP 76.1 cm??? 67 - 155 / 56 - 104 cm??? LV Systolic Volume MOD BP 42.1 cm??? 22 - 58 / 19 - 49 cm??? LV Ejection Fraction MOD BP 44.7 % >= 55 % LV Diastolic Volume MOD 4C 72.8 cm??? LV Systolic Volume MOD 4C 32.6 cm??? LV Ejection Fraction MOD 4C 55.3 % LV Diastolic Length 4C 7.5 cm LV Systolic Length 4C 6.7 cm LV Diastolic Volume MOD 2C 73.2 cm??? LV Systolic Volume MOD 2C 41.1 cm??? LV Ejection Fraction MOD 2C 43.8 % LV Diastolic Length 2C 6.8 cm LV Systolic Length 2C 6.8 cm LA Volume 109.7 cm??? 18 - 58 / 22 - 52 cm??? LA Volume Index 51.4 cm???/m??? 16 - 28 cm???/m??? M-MODE Aortic Root Diameter MM 3.5 cm LA Systolic Diameter MM 4.6 cm LA Ao Ratio MM 1.3 AV Cusp Separation MM 2.1 cm DOPPLER AI Peak Velocity 462.7 cm/s AI Peak Gradient 85.6 mmHg AI Pressure Half Time 812.7 ms LVOT Peak Velocity 97.5 cm/s LVOT Peak Gradient 3.8 mmHg LVOT Velocity Time Integral 18.3 cm TR Peak Velocity 236.9 cm/s TR Peak Gradient 22.4 mmHg Right Ventricular Systolic Press 26.6 mmHg FINDINGS Left Ventricle Left ventricular ejection fraction is estimated at 55-60 %. Mildly increased septal wall thickness. Normal left ventricular systolic function with no obvious regional wall motion abnormalities. Left ventricular cavity size normal. Right Ventricle Normal right ventricular size and function. Right ventricular systolic pressure within normal limits. Right Atrium Normal right atrial size. Catheter/pacemaker wire in the right atrial cavity. Left Atrium Moderately increased left atrial diameter. Severely increased left atrial volume. Mildly increased left atrial area. Mitral Valve Structurally normal mitral valve . No mitral stenosis. [id number] mitral regurgitation. Aortic Valve Trileaflet aortic valve. No aortic stenosis. Mild aortic regurgitation. Tricuspid Valve Structurally normal tricuspid valve. Moderate tricuspid regurgitation. Pulmonic Valve Structurally normal pulmonic valve. Trace pulmonic regurgitation. No pulmonic stenosis. Pericardium No pericardial or pleural effusion. Aorta Normal size aortic root and proximal ascending aorta. CONCLUSIONS Diagnosis: Chest discomfort Preserved LV systolic function Possible pericarditis without effusion Prominent pericardial stripe posterior to the atria Previewed by: Dr. Dom Gomez MD (Electronically Signed) Final Date: 28 October 2023 17:57
--- NOTE | 2023-10-29 13:59 | CT ---
EXAM: CT head without contrast. DATE: 09/20/2023 17:10 INDICATION: Patient age:ROBSON VALENTIN : 1945 Reason for study: AMS COMPARISON: None, please note PACS downtime occurred during the radiologist interpretation of these i mages with limited priors/reports. TECHNIQUE: Multiple axial CT images of the brain were obtained without IV contrast. One or more CT do se reduction strategies were utilized during this examination. Total DLP administered was 1154.4 mGyc m. FINDINGS: Extra-axial spaces: No abnormal extra-axial fluid collections. Ventricular system: Dilatation in proportion to cerebral atrophy. Cerebral parenchyma: Cerebral atrophy. No acute intraparenchymal hemorrhage or mass effect. The olea -white junction is well differentiated. Scattered hypoattenuating areas are seen within the white mat ter. Cerebellum: Unremarkable. Mass effect: No evidence of midline shift. Intracranial vasculature: Atherosclerotic calcifications of the intracranial vessels. Soft tissues: Normal. Calvarium/osseous structures: No depressed skull fracture. Paranasal sinuses and mastoid air cells: Clear. Visualized orbits: Bilateral aphakia IMPRESSION: 1. No acute intracranial process. 2. Nonspecific white matter changes, likely secondary to chronic small vessel ischemic disease. [facility], , 10/29/2023 1:57 PM
== END 2023-09-23 17:28 | disposition home or self-care (01) | DRG 948 ==
LOC: DISRECOVER 20:50
PROVIDERS: ADMIT Internal Medicine; ATTEND Internal Medicine
DX: R41.82 Altered mental status, unspecified (principal); I10 Essential (primary) hypertension; E78.5 Hyperlipidemia, unspecified; N40.0 Benign prostatic hyperplasia without lower urinary tract symptoms; F32.A Depression, unspecified; Z95.0 Presence of cardiac pacemaker
CPT/HCPCS: 70450; 80061; 82607; 82746; 83036; 93306; 93880; 99285

== ENCOUNTER → 2023-09-20 | Outpatient (CLI) | payer MEDICARE | END | disposition home or self-care (01) | LOC: RADECHMAIN 14:27 | PROVIDERS: ATTEND Internal Medicine | DX: R06.02 Shortness of breath (principal) | CPT/HCPCS: 93306 ==

== ENCOUNTER 2023-10-02 06:24 | Day surgery (SDC) | payer MEDICARE ==
[2023-10-02] MEDS ORDERED: SODIUM CHLORIDE 0.9% 50 ML BAG IV ONE (07:00)
[2023-10-02] MEDS ORDERED: SODIUM CHLORIDE 0.9% 1,000 ML BAG ONE (07:00)
[2023-10-02] MEDS ORDERED: ceFAZolin 10 GM VIAL IVPB ONE (07:00)
[2023-10-02] MEDS ORDERED: LIDOCAINE 1% INJ 10MG/ML (20 ML MDV) ONE (08:40)
[2023-10-02] MEDS ORDERED: MIDAZOLAM 2 MG/2 ML VIAL ONE (08:40)
[2023-10-02] MEDS ORDERED: fentaNYL (PF) 50 MCG/ML 2 ML AMP ONE (08:40)
[2023-10-02] MEDS ORDERED: ACETAMINOPHEN IV (For NPO) 1,000 MG/100 ML VIAL ONE (11:36)
--- NOTE | 2023-11-28 15:32 | P.PCN ---
Date of Procedure: 10/02/23 Description of Procedure: CARDIOLOGY PROCEDURE NOTE [facility]: Dr. Gregg Sepulveda Procedure performed: Dual chamber permanent pacemaker generator change Site: Left subclavian Indications: Sick Sinus Syndrome, BARBARA Complications: None Blood Loss: Minimal Description of Procedure: After the risks, benefits, and alternatives of the above-mentioned procedure was explained in detail with the patient, informed consent was obtained. The patient was taken to the cardiac catheterization suite where the left subclavian area was sterily prepped and draped in the usual fashion. Patient was given IV Versed and fentanyl for sedation. The skin over the existing pulse generator was infiltrated with lidocaine. An incision was made in the skin and was deepened until the pectoral fascia was exposed. Hemostasis was obtained. The existing pulse generator was pulled out of the pocket. The leads were disconnected and were checked for thresholds. The existing leads were then inserted into the appropriate position into the new generator. They were then secured with the setscrew provided. The leads and generator were inserted into the pocket with the leads posterior. The subcutaneous tissue was approximated utilizing #2.0 and 3.0 vicryl in an interrupted stitch fashion. The dermal layer was approximated utilizing #4.0 vicryl. The area was cleansed with sterile saline and dried. A sterile 4x4 dressing was applied and the patient was transferred to the post catheterization holding area in stable and satisfactory condition. The patient tolerated the procedure well. Generator Data Garnishment Specialist: [employer] Brand: [id number] Anna XT DR MRI Model #: [id number] Serial#: [id number] Right Atrial Bipolar Lead Data: Type: Active fixation lead Garnishment Specialist: [employer] Model#: 4469 Serial Number: [id number] Right Ventricular Bipolar Lead Data: Type: Active fixation lead Garnishment Specialist: [employer] Model #: [id number] Serial #: [id number] Stimulation Thresholds: Right atrial bipolar lead pacing and sensing thresholds Voltage: 0.5V Impedance: 285ohms P-wave sensin.1 mV Right Ventricular bipolar lead pacing and sensing thresholds Pulse Width: 0.4ms Voltage: 0.75 volts Impedance: 418 ohms R-wave sensin.6 mV Parameter Setting: Pacing mode is AAIR<=>DDDR Lower rate 60 bpm Upper rate 130 bpm Impressions: 1. Successful generator change of a dual chamber permanent pacemaker in the left pectoral site. Plan: 1. Routine post procedure care will be instituted as well as outpatient follow- up surveillance.
== END 2023-10-02 12:20 | disposition home or self-care (01) ==
LOC: CATHEP 06:24
PROVIDERS: ATTEND Internal Medicine
DX: I49.5 Sick sinus syndrome (principal); I10 Essential (primary) hypertension; E78.5 Hyperlipidemia, unspecified; I71.21 Aneurysm of the ascending aorta, without rupture; Z86.73 Personal history of transient ischemic attack (TIA), and cerebral infarction without residual deficits; Z45.010 Encounter for checking and testing of cardiac pacemaker pulse generator [battery]; Z79.82 Long term (current) use of aspirin; Z79.1 Long term (current) use of non-steroidal anti-inflammatories (NSAID); Z79.899 Other long term (current) drug therapy
CPT/HCPCS: 33228; C1785; J2250; J0690; J2001; J3010; J0131